=== PATIENT | male | born 1985 | race African-American/Black ===

== ENCOUNTER 2021-01-18 07:58 | Observation (INO) | payer OTHER, SELFPAY ==
[2021-01-18] VITALS (14 sets, daily range): BP systolic 110–144; BP diastolic 80–109; PULSE 74–112; RESP 16–23; TEMP 36.2–37.1; O2SAT 98–100
--- NOTE | 2021-01-18 | ECHO_ITS ---
Patient Info Name: Varun Rankin Age: 35 years : 1985 Gender: Male Ht: 75 in Wt: 240 lbs BSA: 2.42 m2 HR: 85 bpm BP: 144 / 82 mmHg Heart Rhythm: Sinus Rhythm Technical Quality: Fair Exam Date: 01/18/2021 2:44 PM Exam Location: [facility] Card Pulmonary Patient Status: Inpatient Admit Date: 01/18/2021 Staff Ordering Physician: Sanchez Dolan MD Operations Trainer: Darlene Caceres RDCS Attending Provider: Sanchez Dolan MD Referring Physician: Magdaleno POTRER; Exam Type: CA echo doppler color flow Study Info Indications R55 - Syncope and collapse Complete two-dimensional, color flow and Doppler transthoracic echocardiogram is performed. Summary 1. Complete two-dimensional, color flow and Doppler transthoracic echocardiogram is performed. 2. Left ventricular systolic function is normal, estimated at 65-70%. 3. There is no increased left ventricular wall thickness. 4. There is no mitral valve stenosis. 5. There is trace tricuspid valve regurgitation. 6. Unable to estimate PA systolic pressure due to poor spectral resolution of tricuspid regurgitant jet velocity. 7. There is no aortic valve stenosis. 8. There is no pericardial effusion. Left Ventricle Left ventricular chamber dimension is normal. Left ventricular systolic function is normal, estimated at 65-70%. There is no increased left ventricular wall thickness. The left ventricular diastolic function is normal. Right Ventricle Right ventricular chamber dimension is normal. Right ventricular systolic function is normal. Left Atria Left atrial chamber dimension is normal. Right Atria Right atrial chamber dimension is normal. Aortic Valve The aortic valve is trileaflet. There is no aortic valve stenosis. There is no aortic valve regurgitation. Pulmonic Valve The pulmonic valve is not well visualized. There is trace pulmonic regurgitation. Mitral Valve The mitral valve has normal leaflets. There is no mitral valve stenosis. Tricuspid Valve The tricuspid valve leaflets are normal. There is trace tricuspid valve regurgitation. Unable to estimate PA systolic pressure due to poor spectral resolution of tricuspid regurgitant jet velocity. Pericardium/Pleural The pericardium appears normal. There is no pericardial effusion. Aorta The aortic root size at the sinus of Valsalva is normal. Left Ventricular Outflow Tract Name Value Normal LVOT 2D LVOT Diameter 2.1 cm LVOT Doppler LVOT Peak Gradient 5 mmHg LVOT Mean Gradient 3 mmHg LVOT VTI 25 cm LVOT VTI/AV VTI Ratio 1.1 LVOT Stroke Volume 86 ml LVOT CO 7.1 l/min LVOT CI 2.9 l/min/m2 Pulmonic Valve Name Value Normal RVOT Doppler
--- NOTE | ~2021-01-18 | CT_ITS ---
EXAMINATION: CT BRAIN W/O DATE: 01/18/2021 09:09 INDICATION: Syncope TECHNIQUE: Computed tomography (CT) of the head was performed without intravenous contrast. The dose- length product was 605.33 mGy-cm. Automated exposure control and iterative reconstruction technique w ere employed. COMPARISON: No prior studies for comparison. FINDINGS: Normal brain parenchymal volume for age. Normal rosen-white differentiation. No acute intrac ranial hemorrhage, infarction, mass or mass effect. No ventriculomegaly or midline shift. Midline sagittal images demonstrate a normal corpus callosum, c raniovertebral junction and sella turcica. Basilar cisterns are patent. Paranasal sinuses and mastoids are pneumatized. No depressed skull fractures. IMPRESSION: 1. No acute intracranial abnormality. Reviewed, dictated and finalized at location B.
--- NOTE | 2021-01-18 08:03 | ECG_ITS ---
Measurements Intervals [place] Rate: 86 P: 29 MI: 173 QRS: 39 QRSD: 104 T: 35 QT: 412 QTc: 493 Interpretive Statements SINUS RHYTHM NONSPECIFIC ST ELEVATION- ANTERIOR LEADS BORDERLINE T WAVE ABNORMALITY- INFERIOR LEADS BASELINE ARTIFACT- I, II, III, AVR, AVF, V1, V3-V6 BORDERLINE ECG Electronically Signed On 01-18-2021 8:16:22 CDT by Isrrael Villa D.O.
[2021-01-18 08:18] LABS: Basophils Percent Auto 0.4 % (0.2-1.2); Eosinophils Absolute Auto 0.4 K/mm3 (0-0.3); Eosinophils Percent Auto 4.3 % (0-4.4); Hematocrit 40.9 % (42.0-52.0); Hemoglobin 14.2 g/dL (14.0-18.0); Immature Granulocyte Absolute 0.02 K/mm3 (0.00-0.031); Immature Granulocyte Percent A 0.2 % (0-0.5); Immature Platelet Fraction Pct 6.9 % (0.9-11.2); Lymphocytes Percent Auto 57.5 % (18.3-44.2); Mean Corpuscular HGB Conc 34.7 g/dl (32-36); Mean Corpuscular Hemoglobin 33.6 pg (26-34); Mean Corpuscular Volume 96.9 fl (80-100); Mean Platelet Volume 10.7 fl (7.4-10.4); Monocytes Absolute Auto 0.5 K/mm3 (0.1-0.6); Monocytes Percent Auto 6.1 % (2.6-8.5); Neutrophils Absolute Auto 2.6 K/mm3 (1.3-6.7); Neutrophils Percent Auto 31.5 % (45.5-73.1); Platelet Count Result 112 k/mm3 (150-375); Red Blood Count 4.22 M/mm3 (4.6-6.20); Red Cell Distribution Width 14.2 % (11.5-14.5); White Blood Count 8.4 K/mm3 (4.5-10.0)
[2021-01-18 08:40] LABS: Anion Gap 9 mmol/L (8-16); Blood Urea Nitrogen 8 mg/dL (9-20); Carbon Dioxide 27 mmol/L (22-30); Chloride 104 mmol/L (98-107); Estimated CRCL calculation 120 ml/min; Estimated Glomerular Filt Rate > 60; Glucose 94 mg/dL (75-110); Potassium 3.4 mmol/L (3.4-5.0); Sodium 140 mmol/L (137-145)
--- NOTE | 2021-01-18 10:51 | ED.SYNCOPE ---
HPI - Syncope General Chief Complaint: Syncope Stated Complaint: syncopal Time Seen by Provider: 01/18/21 08:27 Mode of arrival: ambulatory Limitations: no limitations History of Present Illness HPI narrative: 35-year-old with no major medical problems was brought in by with complaints of having 2 syncopal episodes. Patient states that he woke up this morning to use the restroom passed out and few minutes later he had another syncopal episode. As per the he was staring at the ceiling not knowing what is going around him. Upon arrival to the ER patient denied any chest pain, shortness of breath or palpitations. Seem to be confused but he was able to answer all the questions. Related Data Allergies Allergy/AdvReac Type Severity Reaction Status Date / Time No Known Allergies Allergy Unknown Verified 01/18/21 08:14 Review of Systems Review of Systems: All systems reviewed & are unremarkable except as noted in HPI and below Constitutional: Constitutional: Reports no additional constitutional complaints Eyes: Eyes: Reports no additional eye complaints ENT: Reports system reviewed and no additional complaints, except as documented Cardiovascular: Cardiovascular: Reports no additional cardiovascular complaints Respiratory: Respiratory: Reports no additional respiratory complaints PMFSH Social History Social History Gender identity (if verbalized by the patient): Male Exam Narrative: Exam Narrative: GENERAL: Well-appearing, well-nourished, and in no acute distress. HEAD: Normocephalic, atraumatic. EYES: PERRLA and EOMI. NECK: Supple. CHEST: Clear to auscultation. No respiratory distress. HEART: Regular rate and rhythm. No murmur heard. Normal peripheral pulses. ABDOMEN: Soft, nontender, nondistended, normal active bowel sounds. EXTREMITIES: Normal range of motion. No edema. SKIN: Warm, dry, no rash. NEURO: No focal deficits. Alert and oriented x3. PSYCH: Normal mood and affect. Const: General: no acute distress Course Course Emergency Course: Patient remained in normal sinus rhythm while he was here in the ER I discussed labs and CT findings with the patient as patient had 2 syncopal episodes on one single day prefer to admit him in the hospital for observation. I discussed with the hospitalist agreed to admit the patient. Vital Signs Vital signs: Vital Signs Temperature 37.1 C 01/18/21 08:03 Pulse Rate 86 01/18/21 08:03 Respiratory Rate 16 01/18/21 08:03 Blood Pressure 131/89 01/18/21 08:03 Pulse Oximetry 100 01/18/21 08:03 Temperature 37.1 C 01/18/21 08:03 Pulse Rate 83 01/18/21 10:37 Respiratory Rate 17 01/18/21 10:37 Blood Pressure 144/109 H 01/18/21 10:37 Pulse Oximetry 100 01/18/21 10:37 MDM - Syncope Lab Data Result diagrams: 01/18/21 08:09 01/18/21 08:09 Labs: Lab Results 01/18/21 01/18/21 Range/Units 08:09 08:09 WBC 8.4 (4.5-10.0) K/mm3 RBC 4.22 L (4.6-6.20) M/mm3 Hgb 14.2 (14.0-18.0) g/dL Hct 40.9 L (42.0-52.0) % MCV 96.9 (80-100) fl MCH 33.6 (26-34) pg MCHC 34.7 (32-36) g/dl RDW 14.2 (11.5-14.5) % Plt Count 112 L (150-375) k/mm3 MPV 10.7 H (7.4-10.4) fl Immature Gran % (Auto) 0.2 (0-0.5) % Neut % (Auto) 31.5 L (45.5-73.1) % Lymph % (Auto) 57.5 H (18.3-44.2) % [place] % (Auto) 6.1 (2.6-8.5) % Eos % (Auto) 4.3 (0-4.4) % Baso % (Auto) 0.4 (0.2-1.2) % Lymph # (Auto) 4.80 H (0.9-3.2) K/mm3 [place] # (Auto) 0.5 (0.1-0.6) K/mm3 Eos # (Auto) 0.4 H (0-0.3) K/mm3 Baso # (Auto) 0.0 (0.0-0.1) K/mm3 Abs Immat Gran (auto) 0.02 (0.00-0.031) K/mm3 Absolute Neuts (auto) 2.6 (1.3-6.7) K/mm3 Absolute Nucleated RBC 0.0 (0.0-0.012) K/mm3 Nucleated RBC % 0.0 (0.0-0.2) % % Immature Plt Fraction 6.9 (0.9-11.2) % Sodium 140 (137-145) mmol/L Potassium 3.4 (3.4-5.0) mmol/L C
--- NOTE | 2021-01-18 12:25 | PM.IMHP ---
H&P: HPI History of Present Illness Date/Time: 01/18/21 12:25 Chief Complaint: Syncope Narrative: This is a 35-year-old male with no significant past medical history he he smokes 7 cigarettes a day roughly, patient presented to the emergency room after he passed out while while he was standing urinating at home fell forward and witnessed. Patient states that last night he took few shots. He has been his usual state of health prior to these. He denies any chills rigors fevers dizziness lightheadedness any auras no incontinent of stool or urine no chills no fevers no rigors no nausea no vomiting no diarrhea no constipation no chest pain no palpitations no leg swelling. Preliminary workup was pretty much unremarkable. Will place patient on observation. Review of Systems Review of Systems: Narrative: The patient presented to the emergency room after he was witnessed by his while he was standing using the bathroom he passed out patient had been taken shots last night Constitutional: Comments: No fevers no rigors no chills Eyes: Comments: No vision changes ENT: Comments: No nasal congestion no earache no sore throat Cardiovascular: Comments: No chest pain no PND no orthopnea no palpitations no dizziness no lightheadedness Respiratory: Comments: No shortness of breath no cough no sputum production Gastrointestinal: Comments: No nausea no vomiting no diarrhea Musculoskeletal: Comments: No muscle aches or pains or joint pain Integumentary/Breasts: Comments: No rashes Neurologic: Comments: No sensorimotor deficit Endocrine: Comments: No polydipsia polyphagia or polyuria no heat or cold intolerance Hematologic/Lymphatic: Comments: No lymphadenopathies [facility] Family History Family History (Updated 01/18/21 @ 12:30 by Jazzy Malik RN) Father Cerebrovascular accident Sibling Cerebrovascular accident Mother Diabetes mellitus Social History Social History Smoking packs per day: 0.5 Smoking cigarettes per day: 10.0 Years smoked: 15 Smoking pack-years: 7.50 Smoking status: Current every day smoker Tobacco type: cigarettes Gender identity (if verbalized by the patient): Male Meds Home Medications and Allergies Home Medications Medication Instructions Recorded Confirmed Type No Home Medications 01/18/21 01/18/21 History Allergies Allergy/AdvReac Type Severity Reaction Status Date / Time No Known Allergies Allergy Unknown Verified 01/18/21 08:14 Vital Signs Vital Signs - 24 hr 01/18/21 08:03 01/18/21 08:13 01/18/21 08:24 Temperature 98.7 F Pulse Rate 86 82 94 Respiratory Rate 16 Blood Pressure 131/89 135/84 Pulse Oximetry 100 01/18/21 08:25 01/18/21 09:57 01/18/21 10:37 Temperature Pulse Rate 112 H 85 83 Respiratory Rate 19 17 Blood Pressure 110/80 142/97 H 144/109 H Pulse Oximetry 100 100 01/18/21 11:52 01/18/21 11:55 Temperature Pulse Rate 87 86 Respiratory Rate 18 23 H Blood Pressure 137/95 H 137/95 H Pulse Oximetry 100 99 Exam Narrative: Exam Narrative: Patient is laying in gurney well-appearing Const: General: comfortable, no acute distress, well developed, alert and awake Nutritional Appearance: average body habitus Orientation/consciousness: patient oriented x3 HENMT: Head: normal to inspection, normocephalic and atraumatic Ears: hearing grossly normal bilaterally Face and sinus: normal facial exam Eyes: General: appearance normal, both eyes and all related structures Pupils: Equal, round and reactive pupils present EOM: EOMs intact bilaterally Neck: Neck: full ROM, no lymphadenopathy and no JVD Thyroid: thyroid normal Lymphatic: no lymphadenopathy noted Resp: Effort & Inspection: normal respiratory effort and able to speak in complete sentences Auscultation: clear to auscultation bilaterally Cardio: Jugular venous distension: no JVD Rate: regular rate Rhythm:
--- NOTE | 2021-01-18 12:33 | ADMGEN ---
This patient, Varun Rankin, was admitted to 2 Medical Room 260-. Patient/family oriented to hospital policies and general routines including ID bracelet, bed and alarms, visiting hours, pain management, procedures, bathroom and other care routines, personal items, smoking policy, room service/diet, and visiting hours. Information on how to activate the Rapid Response Team has been discussed. Patient/Family are encouraged to report perceived risks to care and to ask questions if they do not understand what they are told or what they should do. Patient in bed resting comfortably at this time. Will continue to monitor patient.
[2021-01-18] MEDS: SODIUM CHLORIDE 0.9% IV 1,000 ML 75 ML IV CONT (12:52)
[2021-01-18] MEDS: THIAMINE HCL INJ 100 MG, FOLIC ACID INJ 1 MG, MULTIVITAMINS-12 INJ VIAL 1 5 ML, MULTIVI... IV CONT (15:12)
[2021-01-18] MEDS: ACETAMINOPHEN 325 MG TABLET 650 MG PO (19:57)
[2021-01-19] VITALS: BP 143/91; PULSE 71; RESP 16; TEMP 36.2; O2SAT 100
[2021-01-19 04:00] VITALS: BP 150/92; PULSE 69; RESP 16; TEMP 36.9; O2SAT 100
[2021-01-19 05:35] LABS: Basophils Percent Auto 0.3 % (0.2-1.2); Eosinophils Absolute Auto 0.3 K/mm3 (0-0.3); Eosinophils Percent Auto 3.5 % (0-4.4); Hematocrit 38.1 % (42.0-52.0); Immature Granulocyte Absolute 0.02 K/mm3 (0.00-0.031); Immature Granulocyte Percent A 0.3 % (0-0.5); Immature Platelet Fraction Pct 8.1 % (0.9-11.2); Lymphocytes Absolute Auto 4.19 K/mm3 (0.9-3.2); Lymphocytes Percent Auto 53.8 % (18.3-44.2); Mean Corpuscular HGB Conc 34.1 g/dl (32-36); Mean Corpuscular Hemoglobin 33.3 pg (26-34); Mean Corpuscular Volume 97.7 fl (80-100); Monocytes Absolute Auto 0.5 K/mm3 (0.1-0.6); Monocytes Percent Auto 6.7 % (2.6-8.5); Neutrophils Absolute Auto 2.8 K/mm3 (1.3-6.7); Neutrophils Percent Auto 35.4 % (45.5-73.1); Platelet Count Result 95 k/mm3 (150-375); Red Cell Distribution Width 14.2 % (11.5-14.5); White Blood Count 7.8 K/mm3 (4.5-10.0)
[2021-01-19 05:51] LABS: Anion Gap 6 mmol/L (8-16); Blood Urea Nitrogen 9 mg/dL (9-20); Calcium 8.5 mg/dL (8.4-10.2); Carbon Dioxide 27 mmol/L (22-30); Chloride 105 mmol/L (98-107); Estimated CRCL calculation 152 ml/min; Estimated Glomerular Filt Rate > 60; Glucose 89 mg/dL (75-110); Sodium 138 mmol/L (137-145)
[2021-01-19 05:57] LABS: Potassium 3.5 mmol/L (3.4-5.0)
[2021-01-19 07:32] VITALS: O2SAT 99
[2021-01-19 08:00] VITALS: BP 135/87; PULSE 68; PULSE 73; RESP 18; TEMP 36.1; O2SAT 100
--- NOTE | 2021-01-19 10:20 | PM.DS ---
DS: Admitting Diagnosis Admitting Diagnosis Admitting Diagnosis: (1) Syncope: (2) ETOH abuse: (3) Tobacco abuse: DS: Discharge Diagnosis Discharge Diagnosis (1) Syncope: Qualifiers: Syncope type: unspecified Qualified Code(s): R55 - Syncope and collapse Code(s): R55 - Syncope and collapse Status: Acute Assessment and Plan: ECHOCARDIOGRAM REVIEWED UNREMARKABLE FINDINGS CT HEAD REVIEWED UNREMARKABLE NO FINDINGS ON TELEMETRY SUSPECTED ALCOHOL INTOXICATION PATIENT HAD BEEN DRINKING THE NIGHT BEFORE (2) ETOH abuse: Code(s): F10.10 - Alcohol abuse, uncomplicated Status: Acute Assessment and Plan: PATIENT HAD BEEN BINGE DRINKING THE DAY BEFORE (3) Tobacco abuse: Code(s): Z72.0 - Tobacco use Status: Acute Assessment and Plan: PATIENT WAS ENCOURAGED TO STOP TOBACCO USE DS: Summary Hospital Course Reason for hospitalization: SYNCOPE Hospital Course: THIS IS A 35-YEAR-OLD MALE WITH KNOWN SIGNIFICANT PAST MEDICAL HISTORY HE IS A CURRENT EVERYDAY SMOKER PATIENT CAME TO THE EMERGENCY ROOM AFTER HE WAS WITNESSED TO TO HAVE A SYNCOPAL EPISODE AT HOME WHILE USING THE TOILET STANDING UPON FURTHER QUESTIONING PATIENT STATED THAT HE HAD BEEN DRINKING THE NIGHT BEFORE PRELIMINARY WORKUP WAS UNREMARKABLE. AN ECHOCARDIOGRAM DID NOT SHOW ANY ACUTE ABNORMALITIES WELL CT OF THE HEAD NO EVENTS WERE RECORDED ON TELEMETRY PATIENT ALSO EXPRESSED CONCERNS ABOUT POSSIBLY BEING A DIABETIC BUT HIS SUGARS REMAIN WITHIN NORMAL LIMITS. PATIENT HAS BEEN DISCHARGED HOME WILL FOLLOW-UP IN THE OUTPATIENT SETTING. CONSULTS OBTAINED: NO CONSULT PROCEDURES: NO PROCEDURES Status at Discharge Cognitive/behavioral status at discharge: AAOX3 Functional status at discharge: independent ambulation Overall status at discharge: patient is back to baseline Time Spent with Patient Time attestation: Total time spent providing and/or coordinating discharge services: Exam Narrative: Exam Narrative: PATIENT IS LAYING IN BED Const: General: comfortable, no acute distress, well developed, alert and awake Nutritional Appearance: average body habitus Orientation/consciousness: patient oriented x3 HENMT: Head: normal to inspection, normocephalic and atraumatic Ears: hearing grossly normal bilaterally Face and sinus: normal facial exam Eyes: General: appearance normal, both eyes and all related structures Pupils: Equal, round and reactive pupils present EOM: EOMs intact bilaterally Neck: Neck: full ROM, no lymphadenopathy and no JVD Thyroid: thyroid normal Lymphatic: no lymphadenopathy noted Resp: Effort & Inspection: normal respiratory effort and able to speak in complete sentences Auscultation: clear to auscultation bilaterally Cardio: Jugular venous distension: no JVD Rate: regular rate Rhythm: regular rhythm Heart sounds: S1 normal heart sound present and S2 normal heart sound present GI: GI Palp: Yes Soft to palpation and Yes No hepatosplenomegaly present : General: Yes deferred Skin: Rashes: no rashes Wounds: no wounds Neuro: General: patient oriented x3 and CN's II-XI intact bilaterally Cranial nerves: Yes CN's II-XII intact bilaterally and Yes Equal, round and reactive pupils present Cognition (Neuro): normal cognition Speech: normal speech Gait exam (Neuro): Normal gait present Motor exam (neuro): 5/5 motor strength present throughout Extrem: General: normal to inspection, full ROM, no joint enlargement and no pedal edema DS: Data Data Completed and Pending Completed studies during hospitalization: EXAMINATION: CT BRAIN W/O DATE: 01/18/2021 09:09 INDICATION: Syncope TECHNIQUE: Computed tomography (CT) of the head was performed without intravenous contrast. The dose-length product was 605.33 mGy-cm. Automated exposure control and iterative reconstruction technique were employed. COMPARISON: No prior studies for comparison. FINDINGS:
[2021-01-19 12:04] LABS: Glucose Point of Care 113 (65-105)
== END 2021-01-19 12:38 | disposition home or self-care (01) ==
LOC: ANHED 10:54 → ANH2MED 11:22
PROVIDERS: Admitting Provider Internal Medicine; Emergency Provider Family Medicine; Visit Provider Internal Medicine
DX: R55 Syncope and collapse (principal); F10.10 Alcohol abuse, uncomplicated; F17.210 Nicotine dependence, cigarettes, uncomplicated
CPT/HCPCS: 36415; 70450; 80048; 82948; 85025; 85055; 93005; 93306; 96361; 96365; 96366; 99285; A9270; G0378; J3411; J3475; J7030

== ENCOUNTER 2021-06-11 22:23 | Emergency (ER) | payer OTHER, SELFPAY ==
[2021-06-11 22:27] VITALS: BP 133/88; PULSE 99; RESP 18; TEMP 36.3; O2SAT 98
[2021-06-12 00:26] VITALS: BP 124/91; PULSE 94; RESP 18; TEMP 36.6; O2SAT 99
--- NOTE | 2021-06-12 00:34 | ED.GENADULT ---
HPI - General Adult General Chief complaint: Extremity Problem,Nontraumatic Stated complaint: I think my blood clot is coming back Time Seen by Provider: 06/12/21 00:21 History of Present Illness HPI narrative: Patient 36-year-old gentleman who presents the emergency department with chief complaint of right leg pain. The patient reports he has history of a DVT and pulmonary embolism last 2 years ago. The patient reports he is currently on a DOAC and reports that he has been compliant with his medications patient reports over the last week he has had pain in his right calf area reports that it is worse with movement and improved with rest. Patient denies chest pain denies shortness of breath. Related Data Home Medications Medication Instructions Recorded Confirmed rivaroxaban [Xarelto] mg 06/11/21 Allergies Allergy/AdvReac Type Severity Reaction Status Date / Time No Known Allergies Allergy Unknown Verified 06/11/21 22:30 Review of Systems Review of Systems: A 10 system review of systems was completed on the patient and is negative except for what is stated in the HPI. Nursing and ancillary documentation was reviewed. [facility] Family History Family History Father Cerebrovascular accident Sibling Cerebrovascular accident Mother Diabetes mellitus Social History Social History Smoking packs per day: 0.5 Smoking cigarettes per day: 10.0 Years smoked: 15 Smoking pack-years: 7.50 Smoking status: Current every day smoker Tobacco type: cigarettes Alcohol intake: current Drinks per week: 2 Substance use: never Gender identity (if verbalized by the patient): Male Sexual Orientation (if Verbalized by the Patient): Straight or Heterosexual Spiritual care concerns: No Exam Narrative: GENERAL: Well-appearing, well-nourished, and in no acute distress. HEAD: Normocephalic, atraumatic. EYES: PERRLA and EOMI. ENT: Nares clear, no rhinorrhea or epistaxis. Mucous membranes moist. NECK: Supple. CHEST: Clear to auscultation. No respiratory distress. HEART: Regular rate and rhythm. No murmur heard. Normal peripheral pulses. ABDOMEN: Soft, nontender, nondistended, normal active bowel sounds. EXTREMITIES: Normal range of motion. No edema. Tenderness to palpation in the right calf SKIN: Warm, dry, no rash. NEURO: No focal deficits. Alert and oriented x3. PSYCH: Normal mood and affect. Course Vital Signs Vital signs: Vital Signs Temperature 36.3 C L 06/11/21 22:27 Pulse Rate 99 06/11/21 22:27 Respiratory Rate 18 06/11/21 22:27 Blood Pressure 133/88 06/11/21 22:27 Pulse Oximetry 98 06/11/21 22:27 Temperature 36.6 C 06/12/21 00:26 Pulse Rate 94 06/12/21 00:26 Respiratory Rate 18 06/12/21 00:26 Blood Pressure 124/91 H 06/12/21 00:26 Pulse Oximetry 99 06/12/21 00:26 Medical Decision Making Vital Signs Vital Signs: Vital Signs Temperature 36.3 C L 06/11/21 22:27 Pulse Rate 99 06/11/21 22:27 Respiratory Rate 18 06/11/21 22:27 Blood Pressure 133/88 06/11/21 22:27 Pulse Oximetry 98 06/11/21 22:27 Temperature 36.6 C 06/12/21 00:26 Pulse Rate 94 06/12/21 00:26 Respiratory Rate 18 06/12/21 00:26 Blood Pressure 124/91 H 06/12/21 00:26 Pulse Oximetry 99 06/12/21 00:26 Discharge Plan Discharge Clinical Impression: Acute pain of right lower extremity Patient Disposition: Home, Self-Care Condition: Stable Instructions: Antibiotic Form Additional Instructions: Please return to radiolog between 630 and 645 for a ultrasound appointment with your right leg that is scheduled for 7 AM. This will be used to determine if there is a blood clot in your leg Prescriptions: No Action Xarelto 20 mg tablet RF: 0 Follow-up/Referrals: Salvatore,DAJUAN Mclean [Primary Care Provider] -
[2021-06-12 01:39] LABS: Basophils Percent Auto 0.6 % (0.2-1.2); Eosinophils Absolute Auto 0.3 K/mm3 (0-0.3); Eosinophils Percent Auto 4.6 % (0-4.4); Hematocrit 44.2 % (42.0-52.0); Hemoglobin 14.9 g/dL (14.0-18.0); Immature Granulocyte Absolute 0.01 K/mm3 (0.00-0.031); Immature Granulocyte Percent A 0.1 % (0-0.5); Immature Platelet Fraction Pct 7.1 % (0.9-11.2); Lymphocytes Absolute Auto 3.93 K/mm3 (0.9-3.2); Lymphocytes Percent Auto 58.8 % (18.3-44.2); Mean Corpuscular HGB Conc 33.7 g/dl (32-36); Mean Corpuscular Hemoglobin 34.3 pg (26-34); Mean Corpuscular Volume 101.6 fl (80-100); Mean Platelet Volume 10.9 fl (7.4-10.4); Monocytes Absolute Auto 0.5 K/mm3 (0.1-0.6); Monocytes Percent Auto 8.1 % (2.6-8.5); Neutrophils Absolute Auto 1.9 K/mm3 (1.3-6.7); Neutrophils Percent Auto 27.8 % (45.5-73.1); Platelet Count Result 138 k/mm3 (150-375); Red Blood Count 4.35 M/mm3 (4.6-6.20); Red Cell Distribution Width 15.5 % (11.5-14.5); White Blood Count 6.7 K/mm3 (4.5-10.0)
[2021-06-12 01:47] LABS: Alanine Aminotransferase 91 U/L (4-50); Albumin Level 4.1 g/dL (3.5-5.1); Alkaline Phosphatase 74 U/L (38-126); Anion Gap 12 mmol/L (8-16); Aspartate Amino Transferase 135 U/L (17-59); Bilirubin,Total 0.3 mg/dL (0.2-1.3); Blood Urea Nitrogen 6 mg/dL (9-20); Calcium 8.6 mg/dL (8.4-10.2); Carbon Dioxide 28 mmol/L (22-30); Chloride 110 mmol/L (98-107); Estimated CRCL calculation 133 ml/min; Estimated Glomerular Filt Rate > 60; Glucose 97 mg/dL (65-110); Potassium 3.6 mmol/L (3.4-5.0); Sodium 150 mmol/L (137-145)
[2021-06-12 01:49] LABS: INR 0.9; Partial Thromboplastin Time 26.2 SECONDS (22.3-36.8); Prothrombin Time 11.6 Seconds (11.1-14.7)
[2021-06-12 01:52] LABS: D Dimer 0.36 ug/mL (<0.48)
[2021-06-12 02:32] VITALS: BP 106/75; PULSE 80; RESP 16; O2SAT 99
== END 2021-06-12 02:47 | disposition home or self-care (01) ==
PROVIDERS: Emergency Provider Emergency Medicine; PCP Nurse Practitioner Family
DX: M79.604 Pain in right leg (principal); F17.210 Nicotine dependence, cigarettes, uncomplicated; Z86.718 Personal history of other venous thrombosis and embolism; Z86.711 Personal history of pulmonary embolism; Z79.01 Long term (current) use of anticoagulants
CPT/HCPCS: 36415; 80053; 85025; 85055; 85380; 85610; 85730; 99283

== ENCOUNTER 2021-06-12 07:05 | Outpatient (CLI) | payer OTHER, SELFPAY ==
--- NOTE | ~2021-06-12 | US_ITS ---
EXAMINATION: US venous doppler LE RT DATE: 06/12/2021 07:36 INDICATION: Right lower limb pain TECHNIQUE: Vasquez scale images without and with compression and Doppler images of the right lower extre mity veins were obtained. COMPARISON: 05/20/2019 FINDINGS: The right common femoral vein, profunda femoral vein, femoral vein, popliteal vein, peronea l trunk, posterior tibial veins, and greater saphenous vein are patent. IMPRESSION: 1. Patent right lower extremity veins. No evidence of deep venous thrombosis. Reviewed, dictated and finalized at location A.
== END 2021-06-12 07:06 | disposition home or self-care (01) ==
PROVIDERS: PCP Nurse Practitioner Family; Visit Provider Emergency Medicine
DX: M79.661 Pain in right lower leg (principal)
CPT/HCPCS: 93971

== ENCOUNTER 2022-06-13 14:45 | Emergency (ER) | payer OTHER, SELFPAY ==
--- NOTE | ~2022-06-13 | CT_ITS ---
EXAMINATION: CT abdomen pelvis w con DATE: 06/13/2022 18:49 INDICATION: abd pain TECHNIQUE: Computed tomography (CT) of the abdomen and pelvis was performed with 100 mL Omnipaque-350 intravenous contrast. Automated exposure control and iterative reconstruction technique were employe d. The dose-length product was 716.15 mGy-cm. COMPARISON: 02/02/2019. FINDINGS: Lower thorax: Bibasilar dependent atelectasis/scar Liver: Diffuse fatty infiltration. Liver enlargement. Biliary/Gallbladder: Gallbladder is normal. No bile duct dilation. Pancreas: No mass or duct dilation. Spleen: Normal. Adrenals:No mass. Kidneys: Left midpole cyst. Right midpole hypodensity, too small to characterize. No suspicious mass. No hydronephrosis or obstructing calculus. GI tract: No small or large bowel dilation. Normal appendix. Mesentery/Peritoneum: No ascites, mass, or free air. Retroperitoneum: No mass. Pelvis: Marked bladder wall thickening, even given the lack of distention, with mild surrounding infl ammatory change. Soft Tissues: Soft tissues and body wall unremarkable. Bones: No acute osseous finding. IMPRESSION: CT findings may reflect cystitis in the appropriate clinical context. Hepatomegaly and steatosis. Oth erwise, no acute finding in the abdomen or pelvis. Reviewed, dictated and finalized at location K. IMPRESSION: CT findings may reflect cystitis in the appropriate clinical context. Hepatomeg daryn and steatosis. Otherwise, no acute finding in the abdomen or pelvis.
[2022-06-13 14:47] VITALS: BP 157/110; PULSE 92; RESP 18; TEMP 36.9; O2SAT 100
--- NOTE | 2022-06-13 14:54 | ECG_ITS ---
Measurements Intervals [place] Rate: 78 P: 33 NE: 140 QRS: 29 QRSD: 89 T: 61 QT: 423 QTc: 482 Interpretive Statements SINUS RHYTHM NORMAL ECG COMPARED TO ECG 01/18/2021 08:07:06 NO SIGNIFICANT CHANGES Electronically Signed On 06-13-2022 16:56:08 CDT by Isrrael Villa D.O.
[2022-06-13 15:13] LABS: Basophils Percent Auto 0.4 % (0.2-1.2); Eosinophils Absolute Auto 0.1 K/mm3 (0-0.3); Eosinophils Percent Auto 0.7 % (0-4.4); Hematocrit 45.6 % (42.0-52.0); Hemoglobin 15.2 g/dL (14.0-18.0); Immature Granulocyte Absolute 0.03 K/mm3 (0.00-0.031); Immature Granulocyte Percent A 0.4 % (0-0.5); Immature Platelet Fraction Pct 5.2 % (0.9-11.2); Lymphocytes Absolute Auto 3.28 K/mm3 (0.9-3.2); Lymphocytes Percent Auto 38.4 % (18.3-44.2); Mean Corpuscular HGB Conc 33.3 g/dl (32-36); Mean Corpuscular Hemoglobin 32.1 pg (26-34); Mean Corpuscular Volume 96.4 fl (80-100); Mean Platelet Volume 10.5 fl (7.4-10.4); Monocytes Absolute Auto 0.9 K/mm3 (0.1-0.6); Monocytes Percent Auto 10.3 % (2.6-8.5); Neutrophils Absolute Auto 4.3 K/mm3 (1.3-6.7); Neutrophils Percent Auto 49.8 % (45.5-73.1); Platelet Count Result 116 k/mm3 (150-375); Red Blood Count 4.73 M/mm3 (4.6-6.20); Red Cell Distribution Width 16.3 % (11.5-14.5); White Blood Count 8.5 K/mm3 (4.5-10.0)
[2022-06-13 15:23] LABS: Alanine Aminotransferase 52 U/L (6-50); Albumin Level 4.2 g/dL (3.5-5.1); Alkaline Phosphatase 96 U/L (38-126); Anion Gap 13 mmol/L (8-16); Aspartate Amino Transferase 83 U/L (17-59); Bilirubin,Total 1.3 mg/dL (0.2-1.3); Blood Urea Nitrogen 5 mg/dL (9-20); Calcium 9.2 mg/dL (8.4-10.2); Carbon Dioxide 25 mmol/L (22-30); Chloride 101 mmol/L (98-107); Estimated CRCL calculation 149 ml/min; Estimated Glomerular Filt Rate > 60; Glucose 101 mg/dL (65-110); Lipase 54 U/L (23-300); Potassium 3.4 mmol/L (3.4-5.0); Sodium 139 mmol/L (137-145)
--- NOTE | 2022-06-13 18:15 | ED.NAVMDI ---
HPI - Nausea/Vomiting/Diarrhea General Chief complaint: Nausea/Vomiting/Diarrhea Stated complaint: N/V, chills Time Seen by Provider: 06/13/22 18:12 Source: RN notes reviewed History of Present Illness HPI Narrative: Patient presents emergency room from home for nausea vomiting and abdominal pain. Patient states that he is been having recurrent episodes of nausea vomiting over the past 6 months 60 has been associate with abdominal pain across the upper abdomen. He states he does have intermittent diarrhea as well states he has had subjective fevers but has not measured fever he denies any chest pain shortness of breath or any other symptoms states he did take Tylenol earlier today for the symptoms states he is on Plavix daily for history of previous CVA Related Data Home Medications Medication Instructions Recorded Confirmed rivaroxaban 20 mg tablet (Xarelto) mg 06/11/21 Allergies Allergy/AdvReac Type Severity Reaction Status Date / Time No Known Allergies Allergy Unknown Verified 06/13/22 18:23 Review of Systems Review of Systems: Gen.: Denies fevers or chills ENT: Denies congestion Respiratory: Denies shortness of breath or cough CV: Denies chest pain or palpitations GI: See HPI Musculoskeletal: Denies back pain or muscle pain Neuro: Denies numbness, tingling, weakness or focal weakness Skin: Denies rash Except as documented, all other systems reviewed and negative [facility] Past Medical History Medical History (Updated 06/13/22 @ 21:39 by Lex Rivas DO) CVA (cerebral vascular accident) Family History Family History Father Cerebrovascular accident Sibling Cerebrovascular accident Mother Diabetes mellitus Social History Social History Smoking packs per day: 0.5 Smoking cigarettes per day: 10.0 Years smoked: 15 Smoking pack-years: 7.50 Smoking status: Current every day smoker Tobacco type: cigarettes Alcohol intake: current Drinks per week: 2 Substance use: never Gender identity (if verbalized by the patient): Male Sexual Orientation (if Verbalized by the Patient): Straight or Heterosexual Spiritual care concerns: No Exam Narrative: APPEARANCE: No acute distress, nontoxic, resting in bed HEENT: Normocephalic, atraumatic, OMM RESPIRATORY: No respiratory distress, clear to auscultation bilaterally with no rhonchi wheezing or rales CARDIOVASCULAR: RRR s murmur ABDOMINAL: Soft nondistended tender palpation epigastric, right upper quadrant left upper quadrant no tenderness right lower quadrant left lower quadrant no rebound or guarding MUSCULOSKELETAl: Moves all extremities. No clubbing, cyanosis or edema. NEURO: Awake and alert. Following commands, speech normal, no focal deficits SKIN:: Warm, dry. Normal Color PSYCHIATRIC: Normal affect/mood Course Course Emergency Course: Patient is now request to evaluate his tooth he states his right lower molar tooth is carious and has been painful for the past several days states he has not been evaluated by dentist on a valuation the right lower molar tooth #32 is carious and tender palpation mild erythema with no fluctuance of the gum we will start on Pen-Vee K and have patient follow-up with his dentist Reviewed the patient's UA patient has 21-3 WBCs but there is negative nitrite and leukocyte Estrace doubt urinary tract infection at this time we will send urine for culture Discussed with the patient his blood pressure he states that he is not currently on any blood pressure medicine. Discussed with patient need to follow-up with his PCP for his blood pressure we also discussed the patient's protein in his urine need follow-up with his PCP to repeat a UA All discussed Dr. Celaya on-call for Dr. Chase patient's PCP we discussed protein in the urine we discussed the patient's blood pressure readings at this time he r
[2022-06-13] MEDS: MORPHINE SULFATE (*CRX) 4 MG/ML INJ IV PUSH (18:30)
[2022-06-13] MEDS: ONDANSETRON INJ 4 MG/2 ML VIAL IV PUSH (18:30)
[2022-06-13] MEDS: SODIUM CHLORIDE 0.9% IV 1,000 ML 999 ML IV CONT ×2 (18:30→20:23)
[2022-06-13] MEDS: FAMOTIDINE 20 MG/2 ML VIAL IV PUSH (18:31)
[2022-06-13 19:56] LABS: Appearance Urine Slightly Cloudy (Clear); Bilirubin Urine 2+ (Negative); Glucose Urine UA Negative (Negative); Ketones Urine 4+ mg/dL (Negative); Leukocyte Esterase Ur Negative LEU/UL (Negative); Nitrate Urine Negative (Negative); Protein Urine 3+ mg/dL (Negative); Specific Grav Ur 1.015 (1.001-1.035)
[2022-06-13 20:11] LABS: Add Urine Microscopic? YES; Blood Urine Trace-Intact (Negative); Mucus Urine Heavy /lpf; RBC Urine 21-50 /hpf (0-2); WBC Urine 21-30 /hpf
[2022-06-13 20:12] LABS: Color Urine Brown (Yellow)
[2022-06-13] MEDS: RIVAROXABAN 20 MG TABLET PO (21:21)
[2022-06-13 21:22] VITALS: BP 185/109; PULSE 78; RESP 21; O2SAT 99
[2022-06-13] MEDS: PENICILLIN V POTASSIUM 250 MG TABLET 500 MG PO (21:47)
== END 2022-06-13 21:38 | disposition home or self-care (01) ==
PROVIDERS: Emergency Provider Emergency Medicine; PCP Nurse Practitioner Family
DX: R11.2 Nausea with vomiting, unspecified (principal); R10.12 Left upper quadrant pain; R10.11 Right upper quadrant pain; K04.7 Periapical abscess without sinus; Z86.73 Personal history of transient ischemic attack (TIA), and cerebral infarction without residual deficits; F17.210 Nicotine dependence, cigarettes, uncomplicated; Z79.02 Long term (current) use of antithrombotics/antiplatelets
CPT/HCPCS: 36415; 74177; 80053; 81001; 83690; 85025; 85055; 87086; 87088; 93005; 96361; 96374; 96375; 99284; A9270; J2270; J2405; J7030; Q9967

== ENCOUNTER 2022-08-14 09:20 | Emergency (ER) | payer OTHER, SELFPAY ==
[2022-08-14] VITALS (9 sets, daily range): BP systolic 129–151; BP diastolic 81–102; PULSE 64–81; RESP 14–22; TEMP 36.4; O2SAT 92–100
--- NOTE | ~2022-08-14 | CT_ITS ---
EXAMINATION: CT abdomen pelvis wo con DATE: 08/14/2022 10:43 INDICATION: Nephrolithiasis presenting with hematuria. TECHNIQUE: Computed tomography (CT) of the abdomen and pelvis was performed without intravenous contr ast. Automated exposure control and iterative reconstruction technique were employed. The dose-length product was 272.76 mGy-cm. COMPARISON: 06/13/2022 FINDINGS: Unchanged linear and curvilinear bands of discoid atelectasis/scarring most prominent in the left low er lobe and to lesser degree at the lingula and right lower lobe. Calcified nodule in the right lower lobe consistent with old granulomatous disease. Heart size is normal. No pericardial or pleural effu nimo. Prominent diffuse hepatic steatosis. Gallbladder, spleen, pancreas and bilateral adrenal glands are normal. Kidneys and ureters are normal with no urolithiasis, hydroureteronephrosis or perinephri c/ureteral stranding. There is diffuse mild fatty infiltration of the wall of the colon. Small bowel and appendix are normal. Bladder appears normal but is partially decompressed which somewhat limits e valuation. No free intraperitoneal gas or fluid. No pathologically enlarged abdominal or pelvic lymph adenopathy. Minimal likely physiologic anterior wedging at T12 and L1. IMPRESSION: 1. No urolithiasis or other acute intra-abdominal/pelvic process. 2. Diffuse hepatic steatosis. Reviewed, dictated and finalized at location A. EY TECHNICIAN
--- NOTE | ~2022-08-14 | CT_ITS ---
EXAMINATION: CT brain wo con DATE: 08/14/2022 14:25 INDICATION: dizzy . TECHNIQUE: Computed tomography (CT) of the head was performed without intravenous contrast. The mA wa s adjusted according to patient size. Iterative reconstruction technique was employed. The dose-lengt h product was 605.33 mGy-cm. COMPARISON: 01/18/2021. FINDINGS: No acute intracranial hemorrhage or extra-axial fluid collection. No hydrocephalus, mass, or herniation. No acute ischemic infarct. Unremarkable dural venous sinus attenuation. No acute osseous abnormality. The aerated spaces are clear. IMPRESSION: No acute intracranial process. Reviewed, dictated and finalized at location K. IT REFERENCE CLERK
[2022-08-14 09:44] LABS: Basophils Percent Auto 0.3 % (0.2-1.2); Eosinophils Percent Auto 0.4 % (0-4.4); Hematocrit 41.9 % (42.0-52.0); Hemoglobin 14.1 g/dL (14.0-18.0); Immature Granulocyte Absolute 0.01 K/mm3 (0.00-0.031); Immature Granulocyte Percent A 0.1 % (0-0.5); Immature Platelet Fraction Pct 5.6 % (0.9-11.2); Lymphocytes Absolute Auto 6.21 K/mm3 (0.9-3.2); Lymphocytes Percent Auto 69.9 % (18.3-44.2); Mean Corpuscular HGB Conc 33.7 g/dl (32-36); Mean Corpuscular Hemoglobin 33.8 pg (26-34); Mean Corpuscular Volume 100.5 fl (80-100); Mean Platelet Volume 10.8 fl (7.4-10.4); Monocytes Absolute Auto 0.5 K/mm3 (0.1-0.6); Monocytes Percent Auto 6.1 % (2.6-8.5); Neutrophils Absolute Auto 2.1 K/mm3 (1.3-6.7); Neutrophils Percent Auto 23.2 % (45.5-73.1); Platelet Count Result 114 k/mm3 (150-375); Red Blood Count 4.17 M/mm3 (4.6-6.20); Red Cell Distribution Width 15.4 % (11.5-14.5); White Blood Count 8.9 K/mm3 (4.5-10.0)
[2022-08-14 09:53] LABS: Mucus Urine Rare /lpf; RBC Urine >75 /hpf (0-2); Squamous Epithelial Cell Urine Few /hpf (Few)
[2022-08-14 09:55] LABS: Appearance Urine Turbid (Clear); Color Urine Brown (Yellow); Glucose Urine UA Negative (Negative); Protein Urine 1+ mg/dL (Negative)
[2022-08-14 09:56] LABS: Bilirubin Urine 2+ (Negative); Blood Urine 4+ (Negative); Ketones Urine 3+ mg/dL (Negative); Nitrate Urine Positive (Negative)
[2022-08-14 09:57] LABS: Add Urine Microscopic? YES; Leukocyte Esterase Ur 1+ LEU/UL (Negative)
[2022-08-14 10:12] LABS: Anion Gap 12 mmol/L (8-16); Blood Urea Nitrogen 7 mg/dL (9-20); Calcium 8.3 mg/dL (8.4-10.2); Carbon Dioxide 24 mmol/L (22-30); Chloride 108 mmol/L (98-107); Estimated CRCL calculation 118 ml/min; Estimated Glomerular Filt Rate > 60; Glucose 81 mg/dL (65-110); Potassium 3.8 mmol/L (3.4-5.0); Sodium 144 mmol/L (137-145)
[2022-08-14 10:14] LABS: Platelet Estimate Decreased (Adequate)
[2022-08-14 10:15] LABS: Schistocytes None Seen (NORMAL); Target Cells 1+ (NORMAL)
--- NOTE | 2022-08-14 11:20 | ED.GENADULT ---
HPI - General Adult General Chief complaint: Urogenital-Male Stated complaint: blood in urine since this AM Time Seen by Provider: 08/14/22 09:41 History of Present Illness HPI narrative: 37-year-old male with past medical history of PE, CVA, kidney stones presents to our department for evaluation of hematuria x24 hours. Patient thinks he may have a recurrence of his kidney stones. He has not experienced any pain with the hematuria. Patient takes Xarelto daily. No fever. Related Data Home Medications Medication Instructions Recorded Confirmed rivaroxaban 20 mg tablet (Xarelto) mg 06/11/21 Allergies Allergy/AdvReac Type Severity Reaction Status Date / Time No Known Allergies Allergy Unknown Verified 08/14/22 09:21 Review of Systems Review of Systems: CONSTITUTIONAL: Denies fever, chills, or sweats. EYES: Denies visual changes, redness, or discharge. ENT: Denies rhinorrhea, congestion, sore throat, or otalgia. CARDIOVASCULAR: Denies chest pain, palpitations, or edema. RESPIRATORY: Denies cough or dyspnea. GASTROINTESTINAL: Denies abdominal pain, nausea, vomiting, or diarrhea. GENITOURINARY: Denies dysuria or hematuria. SKIN: Denies rash or itching. MUSCULOSKELETAL: Denies back pain, joint pain, or myalgia. NEUROLOGIC: Denies headache, numbness, or weakness. PSYCHIATRIC: Denies anxiety or depression. [facility] Past Medical History Medical History (Updated 08/14/22 @ 11:18 by Naif Cerna DO) CVA (cerebral vascular accident) Family History Family History Father Cerebrovascular accident Sibling Cerebrovascular accident Mother Diabetes mellitus Social History Social History Smoking packs per day: 0.5 Smoking cigarettes per day: 10.0 Years smoked: 15 Smoking pack-years: 7.50 Smoking status: Current every day smoker Tobacco type: cigarettes Alcohol intake: current Drinks per week: 2 Substance use: never Gender identity (if verbalized by the patient): Male Sexual Orientation (if Verbalized by the Patient): Straight or Heterosexual Spiritual care concerns: No Exam Narrative: GENERAL: Well-appearing, well-nourished, and in no acute distress. HEAD: Normocephalic, atraumatic. EYES: PERRLA and EOMI. ENT: Nares clear, no rhinorrhea or epistaxis. Mucous membranes moist. NECK: Supple. CHEST: Clear to auscultation. No respiratory distress. HEART: Regular rate and rhythm. No murmur heard. Normal peripheral pulses. ABDOMEN: Soft, nontender, nondistended, normal active bowel sounds. EXTREMITIES: Normal range of motion. No edema. SKIN: Warm, dry, no rash. NEURO: No focal deficits. Alert and oriented x3. PSYCH: Normal mood and affect. Course Vital Signs Vital signs: Vital Signs Temperature 97.5 F L 08/14/22 09:22 Pulse Rate 81 08/14/22 09:22 Respiratory Rate 16 08/14/22 09:22 Blood Pressure 151/97 H 08/14/22 09:22 Pulse Oximetry 100 08/14/22 09:22 Oxygen Delivery Room Air 08/14/22 09:22 Temperature 97.5 F L 08/14/22 09:22 Pulse Rate 81 08/14/22 09:22 Respiratory Rate 16 08/14/22 09:22 Blood Pressure 151/97 H 08/14/22 09:22 Pulse Oximetry 100 08/14/22 09:22 Oxygen Delivery Room Air 08/14/22 09:22 Medical Decision Making MDM Narrative Medical decision making narrative: I have discussed all lab and imaging results with patient and family. We do not do taxi kidney stone on CT scan. UA is indicative of urinary tract infection patient does take Xarelto daily. We have discussed the importance of close monitoring and he will have prompt follow-up with his PCP to discuss risk versus benefits of continuing versus deseeding his Xarelto. Hemoglobin is greater than 14 at this time and there is no active bleeding noted. He is stable for discharge home. Vital Signs Vital Signs: Vital Signs Temperature 97.5 F L
--- NOTE | 2022-08-14 11:50 | PC.NURSE ---
Patient got up to get dressed for discharge, walked into the bathroom, felt dizzy and lightheaded. Lise, ED word processor technician took a wheelchair into patient's room and assited patient into the chair. Unable to get chair through bathroom door, patient assisted by 2 ED staff members and assisted onto his stretcher. Extrusion Press Supervisor made Dr. Cerna aware of the situation, per Dr. Cerna patient is still okay for discharge. Extrusion Press Supervisor then spoke with MAURIZIO Amaral ED charge nurse and informed her what happened. Decision to give patient some food and drink and reassess patient prior to discharge. Patient given turkey sandwhich, chips, water, and orange juice at this time. Will reevaluate patient after he eats.
[2022-08-14] MEDS: SODIUM CHLORIDE 0.9% IV 1,000 ML 999 ML IV CONT (12:08)
--- NOTE | 2022-08-14 12:24 | PC.NURSE ---
Patient attempted to sit up on the side of the bed after eating his sandwich and chips. Patient sat up, stood up, and became dizzy and lightheaded. Patient unable to walk and sat back down on stretcher. Dr. Cerna made aware of situation and Dr. Cerna to go see patient.
--- NOTE | 2022-08-14 13:57 | ECG_ITS ---
Measurements Intervals [place] Rate: 70 P: 49 GA: 185 QRS: 49 QRSD: 92 T: 34 QT: 443 QTc: 479 Interpretive Statements SINUS RHYTHM NONSPECIFIC ST ELEVATION IN ANT/INF LEADS BORDERLINE ECG COMPARED TO ECG 06/13/2022 15:01:21 NO SIGNIFICANT CHANGES Electronically Signed On 08-14-2022 17:06:00 MATERIALS SCIENTIST by Isrrael Villa D.O.
[2022-08-14 14:20] LABS: Troponin I < 0.012 ng/mL (0.000-0.034)
== END 2022-08-14 15:46 | disposition home or self-care (01) ==
PROVIDERS: Physician Assistant; Emergency Provider Emergency Medicine; PCP Nurse Practitioner Family
DX: N30.00 Acute cystitis without hematuria (principal); Z86.73 Personal history of transient ischemic attack (TIA), and cerebral infarction without residual deficits; Z86.711 Personal history of pulmonary embolism; F17.210 Nicotine dependence, cigarettes, uncomplicated; Z20.822 Contact with and (suspected) exposure to COVID-19; R94.31 Abnormal electrocardiogram [ECG] [EKG]
CPT/HCPCS: 36415; 70450; 74176; 80048; 81001; 84484; 85025; 85055; 87086; 93005; 96360; 99283; J7030

== ENCOUNTER 2022-09-16 00:23 | Day surgery (SDC) | payer OTHER, SELFPAY ==
[2022-09-13 09:20] VITALS: BMI 30.4
--- NOTE | 2022-09-16 11:14 | P.HP_ITS ---
History of Present Illness History of Present Illness Consent: Risks, benefits, and alternatives have been discussed and questions answered. Patient agrees to proceed with procedure. Chief complaint: nausea/vomiting Narrative: Varun Rankin is a 37 year old male who Has had issues with recurrent nausea vomiting for the past year. Most episodes are preceded by dizziness. he has lost he believes about 10 lb. He denies abdominal pain. He had gone to the emergency room where he was started on famotidine which seems to be helping somewhat. Review of Systems Review of Systems: All systems reviewed & are unremarkable except as noted in HPI and below PMFSH Past Medical History Medical History CVA (cerebral vascular accident) DVT (deep venous thrombosis) Nausea & vomiting Pulmonary embolism Family History Family History Father Cerebrovascular accident Sibling Cerebrovascular accident Mother Diabetes mellitus Social History Social History Smoking packs per day: 0.5 Smoking cigarettes per day: 10.0 Years smoked: 15 Smoking pack-years: 7.50 Smoking status: Current every day smoker Tobacco type: cigarettes Alcohol intake: current Drinks per week: 21 Alcohol use details: [facility] Substance use: never Substance use type: does not use Living arrangements: with family Gender identity (if verbalized by the patient): Male Sexual Orientation (if Verbalized by the Patient): Straight or Heterosexual Spiritual care concerns: No Meds Home Medications and Allergies Home Medications Medication Instructions Recorded Confirmed Type rivaroxaban 20 mg tablet (Xarelto) 20 mg PO QPM 06/11/21 09/13/22 History famotidine 20 mg tablet (Pepcid AC) 20 mg PO DAILY #14 tabs 06/13/22 09/13/22 Rx ondansetron 4 mg disintegrating 4 mg PO Q6H PRN nausea and 08/30/22 09/13/22 Rx tablet vomiting #20 tabs Allergies Allergy/AdvReac Type Severity Reaction Status Date / Time No Known Allergies Allergy Unknown Verified 09/16/22 11:44 Exam Const: General: alert Orientation/consciousness: patient oriented x3 Resp: Auscultation: clear to auscultation bilaterally Cardio: Rhythm: regular rhythm GI: GI Palp: Yes Soft to palpation and No Tenderness to palpation present (GI) Neuro: General: patient oriented x3 Assessment and Plan Assessment and plan (1) Nausea & vomiting: Code(s): R11.2 - Nausea with vomiting, unspecified Status: Acute Assessment and Plan: EGD with possible biopsy or dilatation or cautery.
[2022-09-16 11:45] VITALS: BP 167/106; PULSE 85; RESP 18; TEMP 37.1; O2SAT 100; BMI 28.8
[2022-09-16] MEDS: LACTATED RINGERS 1,000 ML 150 ML IV CONT (11:53)
--- NOTE | 2022-09-16 12:09 | P.PNAN_ITS ---
Anes - Initial Pre Proc Eval Procedure: Operation Date: 09/16/22 13:30 Proposed Procedures p Esophagogastroduodenoscopy EGD - Kin Cronin MD Date/Time: 09/16/22 12:09 Surgeon: Kin Cronin MD Pre Op Diagnosis: nausea/vomiting Patient Data Age: 37 Gender: M Height: 1.91 m Weight: 104.7 kg Last Vital Signs Temp 37.1 C 09/16/22 11:45 Pulse 85 09/16/22 11:45 Resp 18 09/16/22 11:45 BP 167/106 H 09/16/22 11:45 Pulse Ox 100 09/16/22 11:45 O2 Del Method Room Air 09/16/22 11:45 Allergies Allergy/AdvReac Type Severity Reaction Status Date / Time No Known Allergies Allergy Unknown Verified 09/16/22 11:44 Home Medications Medication Instructions Recorded Confirmed Type rivaroxaban 20 mg tablet (Xarelto) 20 mg PO QPM 06/11/21 09/13/22 History famotidine 20 mg tablet (Pepcid AC) 20 mg PO DAILY #14 tabs 06/13/22 09/13/22 Rx ondansetron 4 mg disintegrating 4 mg PO Q6H PRN nausea and 08/30/22 09/13/22 Rx tablet vomiting #20 tabs Patient hx anesthesia problems: none Family hx anesthesia problems: none Results Review: All pre-operative results and documents have been reviewed as part of the pre- operative evaluation. [facility] Past Medical History Medical History CVA (cerebral vascular accident) DVT (deep venous thrombosis) Nausea & vomiting Pulmonary embolism Family History Family History Father Cerebrovascular accident Sibling Cerebrovascular accident Mother Diabetes mellitus Social History Social History Smoking packs per day: 0.5 Smoking cigarettes per day: 10.0 Years smoked: 15 Smoking pack-years: 7.50 Smoking status: Current every day smoker Tobacco type: cigarettes Alcohol intake: current Drinks per week: 21 Alcohol use details: [facility] Substance use: never Substance use type: does not use Living arrangements: with family Gender identity (if verbalized by the patient): Male Sexual Orientation (if Verbalized by the Patient): Straight or Heterosexual Spiritual care concerns: No Anes - Eval Final PreProcedure Day of Procedure 09/16/22 12:09 Patient weight: overweight Heart: regular rate and rhythm Lungs: decreased breath sounds Airway: Mallampati scale class II Neurological: alert and oriented Last oral intake: >/= 8 hours ASA classification: III Emergent: no Anesthetic plan: proceed Anesthesia type and monitoring: general GIVS and standard monitoring Results Review: All pre-operative results and documents have been reviewed as part of the pre- operative evaluation. Informed Consent: The patient's anesthetic plan and its attendant risks and benefits were discussed with the patient/family/POA. Questions were solicited and answers provided to the satisfaction of the patient/family/POA.
[2022-09-16 12:41] VITALS: BP 158/111; PULSE 85; RESP 21; O2SAT 100
[2022-09-16 12:51] VITALS: BP 158/118; PULSE 79; RESP 16; O2SAT 100
[2022-09-16 13:01] VITALS: BP 158/116; PULSE 88; RESP 17; O2SAT 100
== END 2022-09-16 13:15 | disposition home or self-care (01) ==
PROVIDERS: PCP Nurse Practitioner Family; Visit Provider Internal Medicine Gastroenterology
PROC: 0DJ08ZZ Inspection of Upper Intestinal Tract, Via Natural or Artificial Opening Endoscopic (ICD-10-PCS; CPT 43235; principal; 2022-09-16 13:30)
DX: K29.70 Gastritis, unspecified, without bleeding (principal); Z86.73 Personal history of transient ischemic attack (TIA), and cerebral infarction without residual deficits; Z86.718 Personal history of other venous thrombosis and embolism; Z86.711 Personal history of pulmonary embolism; F17.210 Nicotine dependence, cigarettes, uncomplicated; Z79.01 Long term (current) use of anticoagulants
CPT/HCPCS: 43239; 87081; 88305; J2704; J7120

== ENCOUNTER 2022-10-13 08:19 | Emergency (ER) | payer OTHER, SELFPAY ==
--- NOTE | 2022-10-13 08:33 | ECG_ITS ---
Measurements Intervals [place] Rate: 79 P: 14 RI: 178 QRS: 15 QRSD: 89 T: 35 QT: 422 QTc: 484 Interpretive Statements SINUS RHYTHM NONSPECIFIC ST ELEVATION IN ANT/INF LEADS BASELINE ARTIFACT- AVR, AVF BORDERLINE ECG COMPARED TO ECG 08/14/2022 14:38:56 NO SIGNIFICANT CHANGES Electronically Signed On 10-13-2022 9:27:52 MANAGER CHILD by Isrrael Villa D.O.
[2022-10-13 08:39] VITALS: BP 173/90; PULSE 81; RESP 16; TEMP 37.6; O2SAT 100
[2022-10-13 08:47] LABS: Add Urine Microscopic? YES; Appearance Urine Slightly Cloudy (Clear); Bilirubin Urine 1+ (Negative); Blood Urine 3+ (Negative); Glucose Urine UA Negative (Negative); Ketones Urine 2+ mg/dL (Negative); Leukocyte Esterase Ur 1+ LEU/UL (Negative); Nitrate Urine Negative (Negative); Protein Urine 1+ mg/dL (Negative); Specific Grav Ur 1.015 (1.001-1.035); pH Urine 8.5 (5.0-9.0)
[2022-10-13 08:55] LABS: Bacteria Urine Trace /hpf; RBC Urine >75 /hpf (0-2); WBC Urine >75 /hpf
[2022-10-13 08:57] LABS: Color Urine Yellow (Yellow)
[2022-10-13 09:26] LABS: Basophils Percent Auto 0.4 % (0.2-1.2); Eosinophils Absolute Auto 0.1 K/mm3 (0-0.3); Eosinophils Percent Auto 1.4 % (0-4.4); Hemoglobin 14.4 g/dL (14.0-18.0); Immature Granulocyte Absolute 0.03 K/mm3 (0.00-0.031); Immature Granulocyte Percent A 0.3 % (0-0.5); Immature Platelet Fraction Pct 10.3 % (0.9-11.2); Lymphocytes Percent Auto 33.3 % (18.3-44.2); Mean Corpuscular HGB Conc 33.5 g/dl (32-36); Mean Corpuscular Hemoglobin 33.1 pg (26-34); Mean Corpuscular Volume 98.9 fl (80-100); Mean Platelet Volume 11.9 fl (7.4-10.4); Neutrophils Absolute Auto 5.4 K/mm3 (1.3-6.7); Neutrophils Percent Auto 54.6 % (45.5-73.1); Platelet Count Result 112 k/mm3 (150-375); Red Blood Count 4.35 M/mm3 (4.6-6.20); Red Cell Distribution Width 13.6 % (11.5-14.5); White Blood Count 9.9 K/mm3 (4.5-10.0)
[2022-10-13 09:37] LABS: Alanine Aminotransferase 49 U/L (6-50); Albumin Level 4.3 g/dL (3.5-5.1); Alkaline Phosphatase 79 U/L (38-126); Anion Gap 9 mmol/L (8-16); Aspartate Amino Transferase 59 U/L (17-59); Bilirubin,Total 0.9 mg/dL (0.2-1.3); Blood Urea Nitrogen 7 mg/dL (9-20); Carbon Dioxide 27 mmol/L (22-30); Chloride 99 mmol/L (98-107); Estimated CRCL calculation 118 ml/min; Estimated Glomerular Filt Rate > 60; Glucose 96 mg/dL (65-110); Potassium 4.2 mmol/L (3.4-5.0); Sodium 135 mmol/L (137-145)
[2022-10-13 10:00] LABS: Influenza A QL RT-PCR Negative (Negative); Influenza B QL RT-PCR Negative (Negative); RSV RNA, RT-PCR Negative (Negative); SARS-CoV-2 RNA PCR Negative
--- NOTE | 2022-10-13 10:19 | ED.MALEGU ---
HPI - Male Genitourinary General Chief complaint: Urogenital-Male Stated complaint: penile discharge, dizzy Time Seen by Provider: 10/13/22 08:28 History of Present Illness HPI Narrative: Patient states that the last few days he has been having some nausea, chills, and pain when he urinates, today noticed a lot of blood in his urine. He was on Xarelto for his PE diagnosed 3 years ago, however he did stop taking for the last week. He feels tired but otherwise denies any chest pain or difficulty breathing. Related Data Home Medications Medication Instructions Recorded Confirmed rivaroxaban 20 mg tablet (Xarelto) 20 mg PO QPM 06/11/21 09/13/22 Allergies Allergy/AdvReac Type Severity Reaction Status Date / Time No Known Allergies Allergy Unknown Verified 09/16/22 11:44 Review of Systems Review of Systems: CONST: Chills HEENT: No sore throat C/V: No chest pain RESP: No cough GI: Nausea : Dysuria and hematuria M/S: No leg swelling SKIN: No rash. NEURO: [No headache or focal numbness or weakness] PSYCH: [No depression] [facility] Past Medical History Medical History CVA (cerebral vascular accident) DVT (deep venous thrombosis) Nausea & vomiting Pulmonary embolism Family History Family History Father Cerebrovascular accident Sibling Cerebrovascular accident Mother Diabetes mellitus Social History Social History Smoking packs per day: 0.5 Smoking cigarettes per day: 10.0 Years smoked: 15 Smoking pack-years: 7.50 Smoking status: Current every day smoker Tobacco type: cigarettes Alcohol intake: current Drinks per week: 21 Alcohol use details: [facility] Substance use: never Substance use type: does not use Gender identity (if verbalized by the patient): Male Sexual Orientation (if Verbalized by the Patient): Straight or Heterosexual Spiritual care concerns: No Exam Narrative: EXAMINATION OF ORGAN SYSTEMS/BODY AREAS: Constitutional: Vital signs per nursing GENERAL:[No acute distress, non-toxic appearing.] HEAD: Normal with no signs of head trauma. EYES: EOMI, conjunctiva normal ENT: Hearing grossly intact LUNGS: Nonlabored breathing. HEART: [Regular rate and rhythm] ABD: [Soft], [nontender to palpation] EXT: Normal range of motion, no lower extremity edema SKIN: [No rashes or lesions.] NEURO: [Alert and oriented x 3. No gross focal sensory or strength deficits.] PSYCH: Normal affect Course Vital Signs Vital signs: Vital Signs Temperature 99.7 F H 10/13/22 08:39 Pulse Rate 81 10/13/22 08:39 Respiratory Rate 16 10/13/22 08:39 Blood Pressure 173/90 H 10/13/22 08:39 Pulse Oximetry 100 10/13/22 08:39 Temperature 99.7 F H 10/13/22 08:39 Pulse Rate 81 10/13/22 08:39 Respiratory Rate 16 10/13/22 08:39 Blood Pressure 173/90 H 10/13/22 08:39 Pulse Oximetry 100 10/13/22 08:39 MDM - Male Genitourinary MDM Narrative Medical decision making narrative: 37-year-old male presenting with hematuria and dysuria, vital signs are stable here, on exam he has no tenderness anywhere including no flank or abdominal tenderness, as he is on Xarelto I will obtain work-up to rule out anemia, check for UTI, he has no pain and there from the suspicious for stones, also obtain bladder scan to make sure he is not obstructed. Labs reviewed and there is no leukocytosis or anemia, he does have a large amount of RBCs and WBCs in his urine. He will be started on ceftriaxone here and given a course of antibiotics, I did review prior cultures and did not see any obvious resistances. Bladder scan here shows no urinary retention, therefore I do not feel he requires any sort of Rojas or bladder irrigation at this time. He is given strict return precautions and follow-up to urology as well as hemato
== END 2022-10-13 11:32 | disposition home or self-care (01) ==
PROVIDERS: Emergency Provider Emergency Medicine; PCP Nurse Practitioner Family
DX: N30.91 Cystitis, unspecified with hematuria (principal); Z20.822 Contact with and (suspected) exposure to COVID-19; Z86.711 Personal history of pulmonary embolism; Z86.73 Personal history of transient ischemic attack (TIA), and cerebral infarction without residual deficits; Z86.718 Personal history of other venous thrombosis and embolism; F17.210 Nicotine dependence, cigarettes, uncomplicated; Z79.01 Long term (current) use of anticoagulants; R94.31 Abnormal electrocardiogram [ECG] [EKG]
CPT/HCPCS: 36415; 80053; 81001; 85025; 85055; 87086; 87491; 87591; 87637; 93005; 96365; 99284; J0696

== ENCOUNTER 2023-02-24 08:03 | Outpatient (CLI) | payer OTHER, SELFPAY ==
--- NOTE | ~2023-02-24 | CT_ITS ---
EXAMINATION: CT abdomen pelvis wo/w con DATE: 02/24/2023 08:59 INDICATION: Gross hematuria TECHNIQUE: Computed tomography (CT) of the abdomen and pelvis was performed without intravenous contr ast. CT of the abdomen and pelvis was then performed with a total of 130 mL Omnipaque 350 intravenous contrast using a double-bolus technique for simultaneous opacification of the renal parenchyma and r enal collecting system. The dose-length product (DLP) was 2079.12 mGy-cm. Automated exposure control and iterative reconstruction technique were employed. COMPARISON: 08/14/2022 FINDINGS: There is chronic linear atelectasis versus scarring of the left lower lobe. The heart size is normal. The liver is diffusely low in attenuation when compared with the spleen, consistent with h epatic steatosis. The spleen, pancreas, gallbladder, and adrenal glands are normal. No suspicious dominique al or urothelial lesion identified. There is a 7 mm cyst of the left kidney. No stones are identified in the kidneys, ureters, or bladder. No hydronephrosis or hydroureter. There is deformity of multipl e calyces of the kidneys with some demonstrating a central cleft and others a teardrop shaped papilla ry cavity. No pathologically enlarged abdominal or pelvic lymph nodes are identified. No free intrape ritoneal gas or evidence of bowel obstruction. The appendix is normal. IMPRESSION: 1. CT findings suggestive of papillary necrosis. 2. Diffuse hepatic steatosis Reviewed, dictated and finalized at location B.
== END 2023-02-24 08:04 ==
LOC: MICIMG 08:04
PROVIDERS: PCP Nurse Practitioner Family; Visit Provider Urology
DX: R31.0 Gross hematuria (principal); K76.0 Fatty (change of) liver, not elsewhere classified
CPT/HCPCS: 74178; Q9967

== ENCOUNTER 2024-12-03 17:10 | Emergency (ER) | payer OTHER, SELFPAY ==
--- NOTE | 2024-12-03 17:14 | ED_ITS ---
HPI - Skin/Abscess/Foreign Bdy General Chief complaint: Extremity Problem,Nontraumatic Stated complaint: rt front gonzales discoloration Time Seen by Provider: 12/03/24 17:13 Source: patient Mode of arrival: ambulatory Limitations: no limitations History of Present Illness HPI narrative: Varun is a 39-year-old male patient presenting to the clinic today with complaints right anterior gonzales discoloration. He takes Xarelto history of DVT, PE, and CVA. States he fell over 4 months ago and still has a bruising discoloration to the right anterior gonzales. Denies any pain or tenderness. No swelling. No fevers, chills, body aches. Related Data Home Medications ?Medication ?Instructions ?Recorded ?Confirmed ?Last Taken ?Type rivaroxaban 20 mg tablet (Xarelto) 20 mg PO QPM 06/11/21 09/13/22 09/13/22 History Allergies Allergy/AdvReac Type Severity Reaction Status Date / Time No Known Allergies Allergy Unknown Verified 09/16/22 11:44 Review of Systems Review of Systems: Pertinent positives per HPI. Patient denies any fever, chills, rash, headache, visual changes, dizziness, cough, runny nose, sore throat, shortness of breath, chest pain, palpitations, nausea, vomiting, diarrhea, constipation, abdominal pain, or any urinary issues. [facility] Past Medical History Medical History Pulmonary embolism DVT (deep venous thrombosis) Nausea & vomiting CVA (cerebral vascular accident) Family History Family History Father Cerebrovascular accident Sibling Cerebrovascular accident Mother Diabetes mellitus Social History Social History Smoking packs per day: 0.5 Smoking cigarettes per day: 10.0 Years smoked: 15 Smoking pack-years: 7.50 Smoking status: Current every day smoker Tobacco type: cigarettes Alcohol intake: current Drinks per week: 21 Alcohol use details: SHOTS-[employer] - AT LEAST Substance use: never Substance use type: does not use Living arrangements: with family Gender identity (if verbalized by the patient): Male Sexual Orientation (if Verbalized by the Patient): Straight or Heterosexual Spiritual care concerns: No Comments At the time of my signature, I reviewed and agree with the nursing past medical, surgical, social, and family history. There is no relevant family history pertinent to the patient complaint. Exam Narrative: General: Well-developed, well nourished, in no apparent distress Head: Normocephalic, atraumatic. Cardio: Regular rate and rhythm, s1 and s2 normal, no murmur appreciated. Resp: Clear to auscultation bilaterally, no rhonchi, rales, wheezing or rubs. Musculoskeletal: No deformity, no swelling, bruising discoloration to the right lower anterior gonzales, non-tender to palpation, grossly normal range of motion, muscle strength strong and equal, peripheral pulse strong, no edema, no cyanosis, normal gait and station Course Course Emergency Course: Portions of this record may have been created with voice recognition software. Level of Care: Express Care Visit Vital Signs Vital signs: Vital signs reviewed MDM - Skin/Abscess/Foreign Bdy MDM Narrative Medical decision making narrative: At the time of visit patient is resting comfortably on the exam table. Patient appears to be nontoxic. Plan: I suspect patient had dramatic ecchymosis from his fall 4 months ago and this likely caused a hematoma/ecchymosis and that is resolving with some discoloration of his skin. Supportive measures were discussed with the patient and they voiced understanding discharge instructions and agrees to treatment plan. Return precautions reviewed Differential Diagnosis Differential diagnosis: Likely abscess of skin or subcutaneous tissue, cellulitis and other (Ecchymosis, on anticoagulation therapy, DVT) Discharge Plan Discharge Clinical Impression: Traumatic ecchymosis of right lower leg Patient Disposition: Home, Self-Care Condition: Stable Instructions: Antibiotic Form, Ecchymosis (ED) Additional Instructions: Likely had hematoma that is resolving causing the discoloration of the skin Moisturize skin using Cetaphil, Lubriderm, or Aquaphor lotion twice daily Follow-up as needed Patient Language: Malagasy Prescriptions: No Action ondansetron 4 mg tablet,disintegrating 4 mg PO Q6H PRN (Reason: nausea and vomiting) Qty: 20 0RF sulfamethoxazole-trimethoprim [Bactrim DS] 800-160 mg tablet 1 tablet PO Q12H Qty: 14 0RF ondansetron 4 mg tablet,disintegrating 4 mg PO Q8H PRN (Reason: nausea and vomiting) Qty: 10 0RF Xarelto 20 mg tablet 20 mg PO QPM famotidine [Pepcid AC] 20 mg tablet 20 mg PO DAILY Qty: 14 0RF Follow-up/Referrals: PHYSICIAN,WEATHERIZATION DIRECTOR [Non-Staff] - Time of Disposition: 17:29 Quality NIHSS Nursing Documentation ED NIHSS nursing documentation: reviewed/agree
[2024-12-03 17:24] VITALS: BP 101/78; PULSE 80; RESP 16; TEMP 36.3; O2SAT 99
== END 2024-12-03 17:32 | disposition home or self-care (01) ==
PROVIDERS: Emergency Provider Nurse Practitioner Family
DX: S80.11XA Contusion of right lower leg, initial encounter (principal); W19.XXXA Unspecified fall, initial encounter; Z86.718 Personal history of other venous thrombosis and embolism; Z86.711 Personal history of pulmonary embolism; Z86.73 Personal history of transient ischemic attack (TIA), and cerebral infarction without residual deficits; Z79.01 Long term (current) use of anticoagulants; F17.210 Nicotine dependence, cigarettes, uncomplicated
CPT/HCPCS: 99212; G0463

== ENCOUNTER 2025-08-06 13:01 | Emergency (ER) | payer OTHER, SELFPAY ==
[2025-08-06] VITALS (12 sets, daily range): BP systolic 108–132; BP diastolic 78–113; PULSE 81–113; RESP 12–21; TEMP 36.6–36.8; O2SAT 95–100
--- NOTE | ~2025-08-06 | XR_ITS ---
EXAMINATION: XR chest 2V DATE: 08/06/2025 14:54 INDICATION: Chest pain TECHNIQUE: Frontal and lateral views of the chest were obtained. COMPARISON: February 022018 FINDINGS: Minimal scarring and/or atelectatic changes in the left lung base. The lungs are otherwise clear and heart size normal. IMPRESSION: 1. Minimal scarring or atelectatic changes in the left lung base. Reviewed, dictated and finalized at location A. [facility]
--- NOTE | ~2025-08-06 | CT_ITS ---
CTA chest PE abdomen pel HISTORY:chest pain ab pain, hsx of PE . COMPARISON: None. 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 Post-processing on an independent workstation was performed to reconstruct MIP images for evaluation of the thoracic vasculature. FINDINGS: There is no pulmonary embolism, aortic dissection, thoracic aneurysm or pericardial fluid. The lung parenchyma is clear. No pleural effusion or pneumothorax is noted. There is no axillary, mediastinal or hilar adenopathy. Limited evaluation of the upper abdomen demonstrates no gross abnormalities. Review of bone windows demonstrates no osteoblastic or lytic lesions. IMPRESSION: There is no pulmonary embolism, aortic dissection, pericardial fluid or thoracic aneurysm. No acute lung findings. 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 No acute lung findings.
--- OUTSIDE RECORDS SUMMARY | 2025-08-06 14:03 | XMS_ITS | Clinical Summary ---
Author Organization [facility] Address [address] [place] [address] Care Team Providers Care Legislative Analyst Name Role Phone Court Phillips-REGISTERED DIET TECHNICIAN Primary Care Provider [phone] Source Comments [facility],non-owned Affiliates and Associated Physician Practices is amultiple site organization consisting of ambulatory clinics and hospital sitesin [place], [place] and [place]. This disclosure is being madepursuant to the Care Everywhere program and may not contain all information available regarding this patient. Last updated 18.[facility] [place] Allergies No known active allergies Medications * Be aware that medications may not be up to date on this document. Alwaysverify current medications with the patient. hydroCHLOROthi azide (Microzide) 12.5 MG capsule Take 1 (one) capsule by mouth once daily Active cyanocobalamin (Vitamin B-12) 1000 MCG tablet Take 1 (one) tablet by mouth once daily Active folic acid (Folvite) 1 MG tablet Take 1 (one) tablet by mouth once daily Active pantoprazole EC (Protonix) 20 MG tablet Take 1 (one) tablet by mouth once daily Active rivaroxaban (Xarelto) 20 MG tablet Take by mouth daily with food Active ondansetron (Zofran) 4 MG tablet Take 1 (one) tablet by mouth every 6 hours as needed for Nausea/Vomiting Active potassium chloride ER (K-TAB) 20 MEQ tablet Take 1 (one) tablet by mouth once daily Active meclizine (Antivert) 25 MG tablet Take 1 (one) tablet by mouth 2 times daily as needed for Dizziness 60 tablet 1 5 Active verapamil (Isoptin) 40 MG tablet Take 1 (one) tablet by mouth 2 times daily Active oxyCODONE, immediate release, (Roxicodone) 5 MG tabletIndicati ons:Abscess, perineum,Scrot al pain Take 1 (one) tablet to 2 (two) tablets by mouth every 6 hours as needed for Pain 12 tablet 5 Active acetaminophen (Tylenol) 325 MG tablet Take 2 (two) tablets by mouth every 4 hours as needed Maximum allowable Acetaminophen amount = 4 Grams (4000 mg) / 24 hours. 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 - on verapamil and xarelto (held due to I+D) HTN (hypertension) 07/20/2025 History of Pulmonary embolism 07/20/2025 Assessment & Plan (07/20/2025 9:49 AM CDT): - follows with neurologist - 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 - on verapamil and xarelto (held due to I+D) Assessment & Plan (07/20/2025 3:10 AM CDT): - follows with neurologist - 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 - on verapamil and xarelto (held due to I+D) CVA (cerebral vascular accident) 07/20/2025 Assessment & Plan (07/20/2025 9:49 AM CDT): - follows with neurologist - 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 - on verapamil and xarelto (held due to I+D) Assessment & Plan (07/20/2025 3:10 AM CDT): - follows with neurologist - 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 - on verapamil and xarelto (held due to I+D) Scrotal pain 07/19/2025 Assessment & Plan (07/20/2025 9:49 AM CDT): - differential includes infected follicle vs epididymitis less likely with no history of dysuria, burning with urination or discharge vs testicular torsion less likely - afebrile, HDS with leukocytosis now resolving 16.1 on admission to now 11.1 - vanc and zosyn started - discussed with urology (will transition to bactrim - urology consulted: - low concern for NTSI - I+D in ED with wound cultures sent (no growth at this time - continue holding xarelto until cleared by urology (they would like to hold through Monday given amount of bleeding) Assessment & Plan (07/20/2025 3:10 AM CDT): - differential includes infected follicle vs epididymitis less likely with no history of dysuria, burning with urination or discharge vs testicular torsion less likely - afebrile, HDS with leukocytosis now resolving 16.1 on admission to now 11.1 - vanc and zosyn started - urology consulted: - low concern for NTSI - I+D in ED with wound cultures sent - NPO in case he needs intervention in the AM Plan: - continue abx - fu wound cultures - fu Urology recs - continue holding xarelto until cleared by urology Abscess, perineum 07/19/2025 Assessment & Plan (07/20/2025 9:49 AM CDT): - differential includes infected follicle vs epididymitis less likely with no history of dysuria, burning with urination or discharge vs testicular torsion less likely - afebrile, HDS with leukocytosis now resolving 16.1 on admission to now 11.1 - vanc and zosyn started - discussed with urology (will transition to bactrim - urology consulted: - low concern for NTSI - I+D in ED with wound cultures sent (no growth at this time - continue holding xarelto until cleared by urology (they would like to hold through Monday given amount of bleeding) Assessment & Plan (07/20/2025 3:10 AM CDT): - differential includes infected follicle vs epididymitis less likely with no history of dysuria, burning with urination or discharge vs testicular torsion less likely - afebrile, HDS with leukocytosis now resolving 16.1 on admission to now 11.1 - vanc and zosyn started - urology consulted: - low concern for NTSI - I+D in ED with wound cultures sent - NPO in case he needs intervention in the AM Plan: - continue abx - fu wound cultures - fu Urology recs - continue holding xarelto until cleared by urology Cellulitis, perineum 07/19/2025 Assessment & Plan (07/20/2025 9:49 AM CDT): - differential includes infected follicle vs epididymitis less likely with no history of dysuria, burning with urination or discharge vs testicular torsion less likely - afebrile, HDS with leukocytosis now resolving 16.1 on admission to now 11.1 - vanc and zosyn started - discussed with urology (will transition to bactrim - urology consulted: - low concern for NTSI - I+D in ED with wound cultures sent (no growth at this time - continue holding xarelto until cleared by urology (they would like to hold through Monday given amount of bleeding) Assessment & Plan (07/20/2025 3:10 AM CDT): - differential includes infected follicle vs epididymitis less likely with no history of dysuria, burning with urination or discharge vs testicular torsion less likely - afebrile, HDS with leukocytosis now resolving 16.1 on admission to now 11.1 - vanc and zosyn started - urology consulted: - low concern for NTSI - I+D in ED with wound cultures sent - NPO in case he needs intervention in the AM Plan: - continue abx - fu wound cultures - fu Urology recs - continue holding xarelto until cleared by urology 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 [address] [place] [address] Radha Martinez RN Transitional Care 07/19/2025 6:02 PM CDT - 07/21/2025 10:50 AM CDT Hospital Encounter [facility]AY [facility] [address] [place] [address] Juanis Kelly MD Jain, Priya, MD Wheeler, Joseph R, MD Internal Medicine Discharge Disposition: Home or Self Care 07/19/2025 Travel from Last 3 Months Family History Medical History Relation Name Comments CVA Brother Seizures Brother Alcohol abuse Father CVA Father CAD (Coronary Artery Disease) Mother Cancer - Other Mother Depression Mother Anxiety Disorder Sister Asthma Sister Relation Name Status Comments Brother Father Mother Sister Social History Tobacco Use Types Packs/Day Years Used Date Smoking Tobacco: Every Day Cigarettes Smokeless Tobacco: Never Tobacco Cessation:Ready to Q uit: Not Asked; Counseling Given: Not Answered Alcohol Use Standard Drinks/Week Comments Yes 2 (1 standard drink = 0.6 oz pur e alcohol) 2-3 daily AUDIT-C Answer Date Recorded Q1: How often do you have a drink containing alc ohol? 2-4 times a month 07/19/2025 Q2: How many drinks containi ng alcohol do you have on a typical day when you are drinking? 3 or 4 07/19/2025 Q3: How often do you have si x or more drinks on one occasion? Never 07/19/2025 Overall Financial Resource Strain (CARDIA) Answe r Date Recorded How hard is it for you to pa y for the very basics like food, housing, medical care, and heating? Patient declined 07/19/2025 [facility] Occup[facility] ional [facility] - Occupational Stress Questionnaire Answer Date Recorded Do you feel stress - tense, restless, nervous, or anxious, or unable to sleep at night because your mind is troubled all the time - these days? Not at all 07/19/2025 Hunger Vital Sign Answer Date Recorded Within the past 12 months, y ou worried that your food would run out before you got the money to buy more. Patient declined Within the past 12 months, t he food you bought just didn't last and you didn't have money to get more. Patient declined PRAPARE - Transportation Answer Date Re corded In the past 12 months, has l ack of transportation kept you from medical appointments or from getting medications? No 06/26 In the past 12 months, has l ack of transportation kept you from meetings, work, or from getting things needed for daily living? No 07/19/2025 Housing Stability Vital Sign Answer Chay e Recorded In the last 12 months, was t here a time when you were not able to pay the mortgage or rent on time? No 07/19/2025 In the past 12 months, how m any times have you moved where you were living? 0 07/19/2025 At any time in the past 12 m [facility], were you homeless or living in a usp (including now)? No 07/19/2025 Sex and Gender Information Value Date Recorded Sex Assigned at Not on file Legal Sex Male 10:21 AM [employer] Gender Identity Not on file Sexual Orientation Not on file Last Filed Vital Signs Vital Sign Reading Time Taken Comments Blood Pressure 117/77 07/21/2025 7:44 AM CDT Pulse 94 07/21/2025 7:44 AM CDT Temperature 37 C (98.6 F) 07/21/2025 7:44 AM CDT Respiratory Rate 16 07/21/2025 7:44 AM CDT Oxygen Saturation 99% 07/21/2025 7:44 AM CDT Inhaled Oxygen Concentration 21% 07/16/2024 1 2:30 PM CDT Weight 109.8 kg (242 lb) 07/19/2025 6:04 PM CDT Height 190.5 cm (6' 3) 07/19/2025 6:04 PM CDT Body Mass Index 30.25 07/19/2025 6:04 PM CDT Plan of Treatment Upcoming Encounters Date Type Department Care Team (Late st Contact Info) Description 08/13/2025 12:45 PM [employer] Office Visit [facility] - Urology [address] [place] [id number] Isreal Hdz MD [address] [place] [phone] Health Maintenance Due Date Last Done Comments HIV SCREENING 01/30/2000 HEPATITIS C SCREENING 01/25/2003 DTAP/TDAP/TD VACCINES (1 - Tdap) 01/30/2004 HEPATITIS B VACCINE (1 of 3 - 19+ 3-dose series) 01/30/2004 PNEUMOCOCCAL VACCINE (1 of 2 - PCV) 01/30/2004 HPV VACCINE (1 - 3-dose SCDM series) 01/30/2012 DEPRESSION SCREENING 09/25/2024 COVID-19 VACCINE (3 - 2024-2 6 season) 2025 01/10/2021, 12/20/2020 INFLUENZA VACCINE (#1) 2025 LIPID TESTING 04/19/2028 04/19/2023, 08/02/2015 ZOSTER VACCINE (1 of 2) 2035 HIB VACCINE Aged Out No longer eligi ble based on patient's age to complete this topic MENINGOCOCCAL (Group B) VACCINE SHARED DECISION-MAKING Aged Out No longer eligible based on patient's age to complete this topic MENINGOCOCCAL GROUPS A/C/Y/W VACCINE Aged Out No longer eligible b ased on patient's age to complete this topic Procedures Procedure Name Priority Date/Time Associated Diagnosis Comments CBC W/O DIFFERENTIAL Routine 07/21/2025 1:49 AM CDT MAGNESIUM BLOOD Routine 07/21/2025 1:49 AM CDT RENAL FUNCTION PANEL Routine 07/21/2025 1:49 AM CDT URINALYSIS REFLEX MICROSCOPIC REFLEX CULTURE STAT 07/20/2025 7:57 AM CDT CULTURE URINE STAT 07/20/2025 7:57 AM CDT MAGNESIUM BLOOD Routine 07/20/2025 1:45 AM CDT RENAL FUNCTION PANEL Routine 07/20/2025 1:45 AM CDT CBC W/O DIFFERENTIAL Routine 07/20/2025 1:22 AM CDT VANCOMYCIN LEVEL RANDOM STAT 07/19/2025 9:55 PM CDT CULTURE WOUND+GRAM STAIN STAT 07/19/2025 8:48 PM CDT DIFFERENTIAL MANUAL STAT 07/19/2025 6 :25 PM CDT LACTIC ACID BLOOD STAT 07/19/2025 6:2 5 PM CDT COMPREHENSIVE METABOLIC PANEL STAT 07/19/2025 6:25 PM CDT CBC W AUTO DIFFERENTIAL STAT 07/19/2025 6:25 PM CDT from Last 3 Months Results * (ABNORMAL) CBC W/O DIFFERENTIAL (07/21/2025 1:49 AM CDT) Only the most recent of2 resultswithin the time period is included. WBC 11.0(H) 4.0 - 10.7 x10E9/L 07/21/2025 2:18 AM CDT [facility] RBC Count 4.07(L) 4.30 - 5.80 x10E12/L 07/21/2025 2:18 AM CDT [facility] Hemoglobin 12.2(L) 13.3 - 17.5 g/dL 07/21/2025 2:18 AM T [facility] Hematocrit 36.1(L) 38.7 - 51.1 % 07/21/2025 2:18 AM CDT [facility] MCV 88.7 80.0 - 98.0 fL 07/21/2025 2:18 AM [facility] MCH 30.0 26.7 - 33.6 pg 07/21/2025 2:18 AM [facility] MCHC 33.8 31.7 - 36.3 g/dL 07/21/2025 2:18 AM [facility] RDW-CV 13.1 11.3 - 14.8 % 07/21/2025 2:18 AM [facility] Platelet Count 205 150 - 420 x10E9/L 07/21/2025 2:18 AM [facility] MPV 10.0 7.8 - 11.4 fL 07/21/2025 2:18 AM [facility] Blood BLOOD SPECIMEN / Unknown Lab Venipuncture / Unknown 07/21/2025 1:49 AM CDT 07/21/2025 2:09 AM CDT us Natalya Dozier MD LAB - HEMATOLOGY ORDERABLES Fabby peralta Result [address] [address], [facility] [phone] * (ABNORMAL) RENAL FUNCTION PANEL (07/21/2025 1:49 AM CDT) Only the most recent of2 resultswithin the time period is included. BUN 12 7 - 26 mg/dL 07/21/2025 2:35 AM [facility] Creatinine 1.13 0.71 - 1.16 mg/dL 07/21/2025 2:35 AM [facility] Sodium 135(L) 136 - 145 mmol/L 07/21/2025 2:35 AM [facility] Potassium 3.6 3.5 - 4.5 mmol/L 07/21/2025 2:35 AM [facility] Chloride 103 98 - 107 mmol/L 07/21/2025 2:35 AM [facility] CO2 25 22 - 29 mmol/L 07/21/2025 2:35 AM [facility] Glucose 81 70 - 99 mg/dL 07/21/2025 2:35 AM [facility] Albumin 3.0(L) 3.4 - 5.0 g/dL 07/21/2025 2:35 AM CDT [facility] Calcium 9.1 8.4 - 10.2 mg/dL 07/21/2025 2:35 AM [facility] Phosphorus 3.2 2.8 - 5.1 mg/dL 07/21/2025 2:35 AM [facility] Anion Gap 7 6 - 16 07/21/2025 2:35 AM [facility] BUN/Creatinine Ratio 11 7 - 23 07/21/2025 2:35 AM [facility] Osmolality Calculated 279 275 - 295 mOsm/kg 07/21/2025 2:35 AM [facility] eGFR by CKD-EPI 84(L) >=90 mL/min/1.7 3 m2 07/21/2025 2:35 AM [facility] Comment:Estimated Glomerular Filtration Rate (eGFR) calculated using the CKD-EPI Creatinine Equation (2020), per the National Kidney Foundation and [place] [employer]ph[employer] recommendations. Blood BLOOD SPECIMEN / Unknown Lab Venipuncture / Unknown 07/21/2025 1:49 AM CDT 07/21/2025 2:09 AM CDT us Natalya Dozier MD LAB - CHEMISTRY ORDERABLES Final Result [address] [address], [facility] [phone] * MAGNESIUM BLOOD (07/21/2025 1:49 AM CDT) Only the most recent of2 resultswithin the time period is included. Magnesium 1.8 1.6 - 2.6 mg/dL 07/21/2025 2:35 AM CDT [facility] Blood BLOOD SPECIMEN / Unknown Lab Venipuncture / Unknown 07/21/2025 1:49 AM CDT 07/21/2025 2:09 AM CDT Natalya Dozier MD LAB - CHEMISTRY ORDERABLES Final Result [address] [place] [address], [facility] [phone] * (ABNORMAL) URINALYSIS REFLEX MICROSCOPIC REFLEX CULTURE (07/20/2025 7:57 AM [facility]) Color UA Yellow Yellow, Straw 07/20/2025 8:38 AM [facility] Clarity UA Clear Clear 07/20/2025 8:38 AM [facility] Glucose UA Normal Normal 07/20/2025 8:38 AM [facility] Bilirubin UA Negative Negative 07/20/2025 8:38 AM [facility] Ketone UA 1+(A) Negative 07/20/2025 8:38 AM [facility] Specific [place] UA 1.040(H) 1.005 - 1.030 07/20/2025 8:38 AM [facility] Blood UA Trace(A) Negative 07/20/2025 8:38 AM [facility] pH UA 5.5 5.0 - 8.0 07/20/2025 8:38 AM [facility] Protein UA Trace(A) Negative 07/20/2025 8:38 AM [facility] Urobilinogen UA Normal Normal mg/dL 07/20/2025 8:38 AM [facility] Nitrite UA Negative Negative 07/20/2025 8:38 AM [facility] Leukocyte Esterase UA 75 CRISTY/uL(A) Negative 07/20/2025 8:38 AM [facility] RBC UA 3-5 0 - 5 # /hpf 07/20/2025 8:38 AM [facility] WBC UA 6-10(A) 0 - 5 # /hpf 07/20/2025 8:38 AM [facility] Bacteria UA None Seen None Seen 07/20/2025 8:38 AM [facility] Squamous Epithelial Cells 0-2 0 - 5 /hpf 07/20/2025 8:38 AM [facility] Mucus UA 1+ /LPF 07/20/2025 8:38 AM [facility] Reflex Status Culture to follow 07/20/2025 8:38 AM [facility] Urine URINE SPECIMEN OBTAINED BY CLEAN CATCH PROCEDURE / Unknown Collection / Unknown 07/20/2025 7:57 AM CDT 07/20/2025 8:01 AM CDT Juanis Kelly MD LAB - URINALYSIS ORDERABLES Fi nal Result Performing Organization Address [facility]/ZIP Co de Phone Number [address] [address], [place] [phone] * CULTURE URINE (07/20/2025 7:57 AM CDT) Pathologist [facility] Culture Urine No growth (<100 CFU/mL) MORENITA 07/21/2025 3:16 PM CDT [facility] Urine URINE SPECIMEN OBTAINED BY CLEAN CATCH PROCEDURE / Unknown Collection / Unknown 07/20/2025 7:57 AM CDT 07/20/2025 8:01 AM CDT Juanis Kelly MD LAB - MICROBIOLOGY ORDERABLES Final Result Performing Organization Address [facility] Co de Phone Number [facility] [address] [place] [address], [facility] [phone] * VANCOMYCIN LEVEL RANDOM (07/19/2025 9:55 PM CDT) [facility] Vancomycin Random 6.7 Therapeutic Ranges not established for random specimens ug/mL 07/19/2025 11:00 PM CDT [facility] Blood BLOOD SPECIMEN / Unknown Lab Venipuncture / Unknown 07/19/2025 9:55 PM CDT 07/19/2025 9:59 PM CDT Narrative [facility] - 07/19/2025 11:00 PM CDT See institution protocol. Result [facility] Natalya Dozier MD LAB - CHEMISTRY ORDERABLES Final Result Performing Organization Address [facility]/ZIP Co de Phone Number [address] [address], [place] [phone] * CULTURE WOUND+GRAM STAIN (07/19/2025 8:48 PM CDT) [facility] Culture No growth MORENITA 07/22/2025 5:07 AM CDT [facility] Gram Stain Rare Polymorphonuclear cells 07/22/2025 5:07 AM CDT [facility] Gram Stain No organisms seen 025 5:07 AM CDT [facility] Gram Stain Heavy Red blood cells 07/22/2025 5:07 AM CDT [facility] Microbiology ENTIRE PERINEUM / Unknown Collection / Unknown 07/19/2025 8:48 PM CDT 07/19/2025 8:50 PM CDT Juanis Kelly MD LAB - MICROBIOLOGY ORDERABLES Final Result [facility] [address] [place] [address], [facility] [phone] * (ABNORMAL) DIFFERENTIAL MANUAL (07/19/2025 6:25 PM CDT) Neutrophil % 63 41 - 74 % 07/19/2025 7:22 PM [facility] Lymphocyte % 24 17 - 47 % 07/19/2025 7:22 PM [facility] Monocyte % 9 3 - 11 % 07/19/2025 7:22 PM [facility] Eosinophil % 4 0 - 7 % 07/19/2025 7:22 PM [facility] Neutrophil Absolute 10.14(H) 1.60 - 7.50 x10E9/L 07/19/2025 7:22 PM [facility] Lymphocyte Absolute 3.86 1.00 - 4.40 x10E9/L 07/19/2025 7:22 PM [facility] Monocyte Absolute 1.45(H) 0.15 - 1.00 x10E9/L 07/19/2025 7:22 PM [facility] Eosinophil Absolute 0.64(H) 0.00 - 0.60 x10E9/L 07/19/2025 7:22 PM [facility] RBC Morphology REVIEWED 07/19/2025 7:22 PM [facility] Giant Platelets PRESENT(A) (none) 07/19/2025 7:22 PM [facility] Large Platelets PRESENT(A) (none) 07/19/2025 7:22 PM [facility] Platelet Clumps PRESENT(A) (none) 07/19/2025 7:22 PM [facility] Blood BLOOD SPECIMEN / Unknown Venipuncture / Unknown 07/19/2025 6:25 PM CDT 07/19/2025 6:26 PM CDT us Juanis Kelly MD LAB - HEMATOLOGY ORDERABLES Fi nal Result [facility] [address] [place] [address], [facility] [phone] * (ABNORMAL) CBC W AUTO DIFFERENTIAL (07/19/2025 6:25 PM CDT) WBC 16.1(H) 4.0 - 10.7 x10E9/L 07/19/2025 7:22 PM [facility] RBC Count 4.54 4.30 - 5.80 x10E12/L 07/19/2025 7:22 PM [facility] Hemoglobin 13.7 13.3 - 17.5 g/dL 07/19/2025 7:22 PM [facility] Hematocrit 40.3 38.7 - 51.1 % 07/19/2025 7:22 PM [facility] MCV 88.8 80.0 - 98.0 fL 07/19/2025 7:22 PM [facility] MCH 30.2 26.7 - 33.6 pg 07/19/2025 7:22 PM [facility] MCHC 34.0 31.7 - 36.3 g/dL 07/19/2025 7:22 PM [facility] RDW-CV 13.1 11.3 - 14.8 % 07/19/2025 7:22 PM [facility] Platelet Count 07/19/2025 7:22 PM [facility] Comment: Platelets clumped on slide but appears adequate. Recommend repeat with a sodium citrate blue top tube. This is a corrected result. Previous result was 194 x10E9/L on 07/19/2025 at 1921 CDT MPV 07/19/2025 7:22 PM [facility] Comment: Unable to report This is a corrected result. Previous result was 10.5 fL on 07/19/2025 at 1921 CDT Blood BLOOD SPECIMEN / Unknown Venipuncture / Unknown 07/19/2025 6:25 PM CDT 07/19/2025 6:26 PM CDT us Juanis Kelly MD LAB - HEMATOLOGY ORDERABLES Fi nal Result [facility] [address] [place] [address], [facility] [phone] * (ABNORMAL) COMPREHENSIVE METABOLIC PANEL (07/19/2025 6:25 PM CDT) BUN 12 7 - 26 mg/dL 07/19/2025 6:57 PM [facility] Creatinine 0.81 0.71 - 1.16 mg/dL 07/19/2025 6:57 PM [facility] Sodium 135(L) 136 - 145 mmol/L 07/19/2025 6:57 PM [facility] Potassium 3.6 3.5 - 4.5 mmol/L 07/19/2025 6:57 PM [facility] Chloride 99 98 - 107 mmol/L 07/19/2025 6:57 PM [facility] CO2 24 22 - 29 mmol/L 07/19/2025 6:57 PM [facility] Glucose 89 70 - 99 mg/dL 07/19/2025 6:57 PM [facility] Calcium 9.4 8.4 - 10.2 mg/dL 07/19/2025 6:57 PM [facility] Protein Total 8.3 6.0 - 8.3 g/dL 07/19/2025 6:57 PM [facility] Albumin 3.3(L) 3.4 - 5.0 g/dL 07/19/2025 6:57 PM [facility] Bilirubin Total 0.5 0.2 - 1.2 mg/dL 07/19/2025 6:57 PM [facility] Alkaline Phosphatase 71 40 - 150 U/L 07/19/2025 6:57 PM [facility] ALT 18 5 - 55 U/L 07/19/2025 6:57 PM [facility] AST 34 5 - 34 U/L 07/19/2025 6:57 PM [facility] Anion Gap 12 6 - 16 07/19/2025 6:57 PM [facility] BUN/Creatinine Ratio 15 7 - 23 07/19/2025 6:57 PM [facility] Osmolality Calculated 279 275 - 295 mOsm/kg 07/19/2025 6:57 PM [facility] Albumin/Globulin Ratio 0.7(L) 1.1 - 2.3 07/19/2025 6:57 PM [facility] eGFR by CKD-EPI >90 >=90 mL/min/1.7 3 m2 07/19/2025 6:57 PM [facility] Comment:Estimated Glomerular Filtration Rate (eGFR) calculated using the CKD-EPI Creatinine Equation (2020), per the National Kidney Foundation and [place] Society of Nephrology recommendations. Blood BLOOD SPECIMEN / Unknown Venipuncture / Unknown 07/19/2025 6:25 PM CDT 07/19/2025 6:26 PM CDT us Juanis Kelly MD LAB - CHEMISTRY ORDERABLES Fin al Result Performing Organization Address [facility] Co de Phone Number [address] [address], [facility] [phone] * LACTIC ACID BLOOD (07/19/2025 6:25 PM CDT) Lactic Acid-Stat 1.8 <=2.0 mmol/L 07/19/2025 6:55 PM T [facility] Blood BLOOD SPECIMEN / Unknown Venipuncture / Unknown 07/19/2025 6:25 PM CDT 07/19/2025 6:26 PM CDT us Juanis Kelly MD LAB - CHEMISTRY ORDERABLES Fin al Result [facility] [address] [place] [address], [facility] [phone] from Last 3 Months Insurance [facility] [address] [facility] SAMIRA JONES [id number] Advance Directives * Full Code (Latest Code Status on File) Date Activated Date Inactivated Comments 07/19/2025 9:15 PM 07/21/2025 1:00 PM Care Teams Legislative Analyst Relationship Specialty Start Date End Date Court Phillips APNP-[address] [address] PCP - General Family Medicine 07/19/25
--- OUTSIDE RECORDS SUMMARY | 2025-08-06 14:03 | XMS_ITS | Encounter Summary ---
Author Organization [facility] Address [address] [place] [address] Phone Care Team Providers Care Nuclear Medicine Physician Name Role Phone Caridad Chase APRN, CNP Primary Care Provider Reason for Visit * Reason Comments Medication Refill Encounter Details Date Type Department Care Team (Late st Contact Info) Description 08/22/2023 Refill [facility] [address] [place] [id number] Segundo Tobar MD [address] [place], [place] [id number] Medication Refill Social History Tobacco Use Types Packs/Day Years Used Date Smoking Tobacco: Every Day Cigarettes Smokeless Tobacco: Never Alcohol Use Standard Drinks/Week Comments Not Currently 10 (1 standard drink = 0.6 oz pu re alcohol) Sex and Gender Information Value Date Recorded Sex Assigned at Not on file Legal Sex Male 1:52 PM CDT Gender Identity Not on file Sexual Orientation Not on file COVID-19 Exposure Response Date Recorded In the last 10 days, have yo u been in contact with someone who was confirmed or suspected to have Coronavirus/COVID-19? No / Unsure 07/31/2023 8:30 AM WAX CUTTER documented as of this encounter Plan of Treatment Not on file documented as of this encounter Visit Diagnoses Not on filedocumented in this encounter Care Teams Nuclear Medicine Physician Relationship Specialty Start Date End Date Caridad Chase APRN, [place] [address] [place] [address] PCP - General Certified Nurse Practitioner 05/01/23 documented as of this encounter
--- OUTSIDE RECORDS SUMMARY | 2025-08-06 14:03 | XMS_ITS | Clinical Summary ---
Author Organization [facility] Address [address], [facility] [address] [place] [address] Phone Care Team Providers Care Laundry Manager Name Role Phone Caridad Chase APRN, INTEGRATED LOGISTICS PROGRAMS DIRECTOR Primary Care Provider Allergies No known active allergies Medications Xarelto 20 MG Tablet 05/18/20 23 Active cyanocobalamin 1000 MCG Tablet TAKE 2,000 MCG BY MOUTH DAILY FOR 14 DAYS, THEN 1,000 MCG DAILY. 04/24/20 23 Active divalproex (DEPAKOTE ER) 500 MG TABLET SR 24 HR 2 times daily. 0 23 Active rosuvastatin (CRESTOR) 20 MG Tablet TAKE 1 TABLET BY MOUTH NIGHTLY AT BEDTIME 05/01/20 23 Active pantoprazole (PROTONIX) 20 MG Tablet Delayed Response Take 20 mg by mouth daily. 05/01/20 23 Active ondansetron (ZOFRAN-ODT) [address] 1 TABLET BY TRANSLINGUAL ROUTE EVERY 6 HOURS NEEDED 05/14/20 23 Active meclizine (ANTIVERT) 25 MG Tablet Take 25 mg by mouth 3 times daily as needed. Active hydroCHLOROthiazid e 12.5 MG Tablet Take 12.5 mg by mouth daily. Active Potassium Chloride ER (KLORCON) 20 MEQ Tablet Controlled Release Take 40 mEq by mouth daily. 12/04/19 24 Active Ajovy 225 MG/1.5ML Solution Auto-injector 225 mg by Subcutaneous route. 04/02/20 24 Active folic acid (FOLVITE) 1 MG TabletIndications: Elevated serum immunoglobulin free light chain level,Anemia, unspecified type Take 1 Tablet by mouth daily. 30 Tablet 3 10/07/19 25 Active Active Problems Problem Noted Date Diagnosed Date DVT (deep venous thrombosis) 05/30/2023 Pulmonary embolism 05/30/2023 CVA (cerebral vascular accident) 05/30/2023 Migraine 05/30/2023 Family History Medical History Relation Name Comments Aneurysm Brother Seizures Brother Stroke Brother Congestive Heart Failure Mother Diabetes Mother Relation Name Status Comments Brother Mother Social History Tobacco Use Types Packs/Day Years Used Date Smoking Tobacco: Every Day Cigarettes Smokeless Tobacco: Never Tobacco Cessation:Ready to Q uit: Yes; Counseling Given: Yes Alcohol Use Standard Drinks/Week Comments Not Currently 10 (1 standard drink = 0.6 oz pu re alcohol) Sex and Gender Information Value Date Recorded Sex Assigned at Not on file Legal Sex Male 1:52 PM CDT Gender Identity Not on file Sexual Orientation Not on file Last Filed Vital Signs Vital Sign Reading Time Taken Comments Blood Pressure 130/82 05/23/2024 9:11 AM CDT Pulse 101 05/23/2024 9:11 AM CDT Temperature 36.9 C (98.4 F) 05/23/2024 9:11 AM CDT Respiratory Rate 18 05/23/2024 9:11 AM CDT Oxygen Saturation 97% 05/23/2024 9:11 AM CDT Inhaled Oxygen Concentration - - Weight 106.8 kg (235 lb 6.4 oz) 05/23/2024 9:11 AM CDT Height 190.5 cm (6' 3) 05/23/2024 9:11 AM CDT Body Mass Index 29.42 05/23/2024 9:11 AM CDT Plan of Treatment Health Maintenance Due Date Last Done Comments Hepatitis C Virus (HCV) Screening 1985 TdaP Immunization 1985 Hepatitis B Immunization (1 of 3 - 19+ 3-dose series) 01/30/2004 Pneumococcal Immunization Combined (1 of 2 - PCV) 01/30/2004 Human Papillomavirus (HPV) Immunization (1 - 3-dose SCDM series) 01/30/2012 Influenza Immunization (#1) 2025 SARS-COV-2 Immunization ( - 2025-26 season) 2025 01/10/2021, 12/20/2020 Respiratory Syncytial Virus (RSV) Immunization (Adult) (1 - 1-dose 75+ series) 01/30/2060 Meningococcal Immunization (ACWY) Aged Out No longer eligible b ased on patient's age to complete this topic Rotavirus Immunization Aged Out No lo nger eligible based on patient's age to complete this topic Insurance [employer]AR[employer] nougat cutter machine Care Teams Laundry Manager Relationship Specialty Start Date End Date Caridad Chase, IT SECURITY ADMINISTRATOR, INTEGRATED LOGISTICS PROGRAMS DIRECTOR [address] [place] [address] PCP - General Certified Nurse Practitioner 05/01/23
--- OUTSIDE RECORDS SUMMARY | 2025-08-06 14:03 | XMS_ITS | Encounter Summary ---
Author Organization [facility] Healthcare Address [address] [place] [address] Care Team Providers Care Loom Technician Name Role Phone Unknown, [place] Primary Care Provider Unavail able Encounter Details Date Type Department Care Team (Late st Contact Info) Description 07/22/2025 Results Follow-Up [facility] Medical [facility]ient Care at [address] [address] Ryann Emmanuel NP [address] [place] [address] [address] [place] [address] Aerobic and anaerobic culture and gram stain Abscess Peritoneum Social History Tobacco Use Types Packs/Day Years Used Date Smoking Tobacco: Never Assessed Sex and Gender Information Value Date Recorded Sex Assigned at Not on file Legal Sex Male 7:49 PM SURGICAL TRAINING SPECIALIST Gender Identity Not on file Sexual Orientation Not on file documented as of this encounter Plan of Treatment Not on file documented as of this encounter Visit Diagnoses Not on filedocumented in this encounter Care Teams Loom Technician Relationship Specialty Start Date End Date Unknown, Lucy PCP - General 03/16/25 documented as of this encounter
--- OUTSIDE RECORDS SUMMARY | 2025-08-06 14:03 | XMS_ITS | Encounter Summary ---
Author Organization [facility] Address [address] [place] [address] Phone Care Team Providers Care Research Chemical Engineer Name Role Phone Caridad Chase APRN, RAIL ENGINEER Primary Care Provider Reason for Visit * Reason Comments Medication Refill Encounter Details Date Type Department Care Team (Late st Contact Info) Description 06/21/2023 Refill [facility] [address] [place] [phone] Segundo Tobar MD [address] [place], [place] [phone] Medication Refill Social History Tobacco Use Types [...] suspected to have Coronavirus/COVID-19? No / Unsure 06/06/2023 8:17 AM CDT documented as of this encounter Miscellaneous Notes * Telephone Encounter - Ivory Pool RN - 06/21/2023 8:27 AM CDT Refill request from pharmacy. Please fill if appropriate. documented in this encounter Plan of Treatment Not on file documented as of this encounter Visit Diagnoses Not on filedocumented in this encounter Care Teams Research Chemical Engineer Relationship Specialty Start Date End Date Caridad Chase, GMAT TUTOR, RAIL ENGINEER [address] [place] [address] PCP - General Certified Nurse Practitioner 05/01/23 documented as of this encounter
--- OUTSIDE RECORDS SUMMARY | 2025-08-06 14:03 | XMS_ITS | Encounter Summary ---
Author Organization [facility] Address [address] [place] [address] Phone Care Team Providers Care Retort Condenser Attendant Name Role Phone Caridad Chase APRN, SHAPER AND PRESSER Primary Care Provider Encounter Details Date Type Department Care Team (Late st Contact Info) Description 09/04/2024 Telephone [facility] [address] [place] [address] Segundo Tobar MD [address] [place] [address] Social History Tobacco Use Types Packs/Day Years [...] on file documented as of this encounter Miscellaneous Notes * Telephone Encounter - Gema Sharpe - 09/04/2024 3:00 PM CST Patient missed appt left stating to call office for rescheduling sent reminder letter out. SLASHER documented in this encounter Plan of Treatment Not on file documented as of this encounter Visit Diagnoses Not on filedocumented in this encounter Care Teams Retort Condenser Attendant Relationship Specialty Start Date End Date Caridad Chase, MARKETING TEAM LEAD, SHAPER AND PRESSER [address] [place] [address] PCP - General Certified Nurse Practitioner 05/01/23 documented as of this encounter
--- OUTSIDE RECORDS SUMMARY | 2025-08-06 14:03 | XMS_ITS | Clinical Summary ---
Author Organization [facility] [address] Address [address] [place] [address] Care Team Providers Care Wind Project Manager Name Role Phone Unknown, Notinfile Primary Care Provider Unavail able Allergies No known active allergies Medications cyanocobalamin (Vitamin B-12) 1,000 mcg tablet TAKE 2,000 MCG BY MOUTH DAILY FOR 14 DAYS, THEN 1,000 MCG DAILY. 3 Active folic acid (FOLVITE) 1 mg tablet Take 1 tablet (1,000 mcg total) by mouth daily 3 Active gabapentin (NEURONTIN) 300 mg capsule Take 1 capsule (300 mg total) by mouth nightly 5 02/13/20 26 Active hydroCHLOROthiazide 12.5 mg tablet Take 1 tablet (12.5 mg total) by mouth every morning Active meclizine (ANTIVERT) 25 mg tablet 3 Active ondansetron ODT (ZOFRAN-ODT) [address] & DISSOLVE 1 TABLET ON THE TONGUE EVERY 6 HOURS NEEDED [address] (PROTONIX) 20 mg EC tablet Take 1 tablet (20 mg total) by mouth daily 3 Active potassium chloride ER (Klor-Con M20) 20 mEq CR tablet TAKE 1 TABLET BY MOUTH TWICE A DAY FOR 3 DAYS Active Xarelto 20 mg tablet Take 1 tablet (20 mg total) by mouth daily 3 Active verapamiL (CALAN) 40 mg tablet Take 1 tablet (40 mg total) by mouth 2 (two) times a day 5 Active Active Problems No known active problems Encounters Date Type Department Care Team Description 07/22/2025 Results Follow-Up [facility] Medical Group Convenient Care at [address] [address] Ryann Emmanuel NP Aerobic and anaerobic culture and gram stain Abscess Peritoneum 07/18/2025 7:15 PM CDT Office Visit [facility] Medical [facility] Convenient Care at [address] [address] Ryann Emmanuel NP Abscess, scrotum (Primary Dx) 07/18/2025 6:46 PM CDT - 07/18/2025 11:59 PM CDT Hospital Encounter [place] [id number] Abscess, scrotum Discharge Disposition: Discharge to home or self care from Last 3 Months Social History Tobacco Use Types Packs/Day Years Used Date Smoking Tobacco: Never Assessed Sex and Gender Information Value Date Recorded Sex Assigned at Not on file Legal Sex Male 7:49 PM BROADCAST TRAFFIC COORDINATOR Gender Identity Not on file Sexual Orientation Not on file Last Filed Vital Signs Vital Sign Reading Time Taken Comments Blood Pressure 109/84 07/18/2025 6:12 PM CDT Pulse 120 07/18/2025 6:12 PM CDT Temperature 36.8 C (98.3 F) 07/18/2025 6:12 PM CDT Respiratory Rate 20 07/18/2025 6:12 PM CDT Oxygen Saturation 99% 07/18/2025 6:12 PM CDT Inhaled Oxygen Concentration - - Weight 110 kg (242 lb 6.4 oz) 07/18/2025 6:12 PM CDT Height - - Body Mass Index - - Plan of Treatment Health Maintenance Due Date Last Done Comments Depression Screening 1985 Hepatitis C Screening 1985 Prostate Cancer Screening-PSA 1985 DTaP/Tdap/Td Vaccine (1 - Tdap) 01/30/1996 Varicella Vaccines (1 of 2 - 13+ 2-dose series) 1998 Hepatitis B Screening 2003 Regular Well Visit/Exam 18-64 2003 HPV Vaccines (1 - 3-dose SCD M series) 01/30/2012 Covid-19 Vaccine (2024-2 6 season) 2025 01/10/2021, 12/20/2020 Influenza Vaccine (#1) 2025 Pneumococcal vaccine <65 Aged Out No longer eligible based on patient's age to complete this topic Procedures Procedure Name Priority Date/Time Associated Diagnosis Comments AEROBIC AND ANAEROBIC CULTURE AND GRAM STAIN Routine 07/18/2025 6:46 PM CDT Abscess, scrotum from Last 3 Months Results * (ABNORMAL) Aerobic and anaerobic culture and gram stain Abscess Peritoneum (07/18/2025 6:46 PM CDT) Direct Specimen Exam Stain: No polymorphonuclear leukocytes seen. Rare Gram Positive [facility] Comment:Testing performed by : [facility], [address] [place]., [address] Report Final Report: Moderate Mixed aerobic and anaerobic microorganisms Includes the following: Few Bacteroides fragilis (.) [facility] Comment:Testing performed by : [facility], [address] [place]., [address] Organism MIXED AEROBIC AND ANAEROBIC MICROORGANISMS [facility] Organism BACTEROIDES FRAGILIS [facility] Abscess (Peritoneum) 07/18/2025 6:46 PM CDT 07/19/2025 12:20 AM CDT Narrative [facility] - 07/22/2025 11:20 AM CDT Testing performed by [facility] Microbiology Laboratory ([phone]) Specimens submitted from normally sterile body sites will have all bacterial morphotypes identified. Specimens that contain grossly mixed valerie and/or are from body sites that are not normally sterile will be examined for Staphylococcus aureus, Pseudomonas aeruginosa, beta-hemolytic strep, vancomycin-resistant Enterococcus, Bacteroides, Parabacteroides, Clostridium perfringens and fungus. If any of these are isolated, the organism will be reported. Current interpretive data was last revised on 2019. Ryann Emmanuel NP LAB MICROBIOLOGY - GENERAL ORD ERABLES Final Result [facility] [address] Department [place] [address] from Last 3 Months Insurance [facility] Care Teams Wind Project Manager Relationship Specialty Start Date End Date Unknown, Notinfile PCP - General 03/16/25
--- OUTSIDE RECORDS SUMMARY | 2025-08-06 14:03 | XMS_ITS | Clinical Summary ---
Author Organization [facility] Address [address] [facility] [place] [address] Care Team Providers Care Naval Gunfire Liaison Officer Name Role Phone Solitario Mckeon MD Primary Care Provider [phone] Allergies No known active allergies Medications albuterol HFA 90 mcg inhaler 02/02/2019 Acti ve oxyCODONE-aceta minophen (PERCOCET) 5-325 mg tablet TAKE 1 TO 2 TABLETS BY MOUTH EVERY 4 TO 6 HOURS NEEDED FOR PAIN . DO NOT EXCEED 6 PER 24 HOURS 0 02/27/2019 Active montelukast (SINGULAIR) 10 mg tablet 02/02/2019 Active fexofenadine (LENA) 180 mg tablet Take 180 mg by mouth daily. Active ELIQUIS 5 mg tablet TAKE 1 TABLET BY MOUTH TWICE A DAY 180 Tablet 08/09/2019 Active Active Problems Problem Noted Date Diagnosed Date Acute saddle pulmonary embolism without acute co r pulmonale 05/30/2019 Family History Medical History Relation Name Comments Breast Cancer Mother Cancer Mother Diabetes Mother Relation Name Status Comments Brother Alive Father Mother Sister Alive Social History Tobacco Use Types Packs/Day Years Used Date Smoking Tobacco: Every Day Cigarettes Smokeless Tobacco: Never Comments:pt only smokes 3 ci gs a day Alcohol Use Standard Drinks/Week Comments Yes 0 (1 standard drink = 0.6 oz pur e alcohol) Sex and Gender Information Value Date Recorded Sex Assigned at Not on file Legal Sex Male 11:16 PM CDT Gender Identity Not on file Sexual Orientation Not on file Last Filed Vital Signs Vital Sign Reading Time Taken Comments Blood Pressure 143/102 05/30/2019 1:09 PM CDT Pulse 94 05/30/2019 1:09 PM CDT Temperature 36.8 C (98.2 F) 05/30/2019 1:09 PM CDT Respiratory Rate 20 05/30/2019 1:09 PM CDT Oxygen Saturation 97% 05/30/2019 1:09 PM CDT Inhaled Oxygen Concentration - - Weight 119 kg (262 lb 4.8 oz) 05/30/2019 1:09 PM CDT Height 188 cm (6' 2) 05/30/2019 1:09 PM CDT Body Mass Index 33.68 05/30/2019 1:09 PM CDT Plan of Treatment Health Maintenance Due Date Last Done Comments DTAP/TDAP/TD VACCINES (1 - Tdap) 01/30/2004 HEPATITIS B VACCINES (1 of 3 - 19+ 3-dose series) 03/2004 HPV VACCINES (1 - 3-dose SCDM series) 01/30/2012 INFLUENZA VACCINE (#1) 2025 Insurance [facility] [place] [id number] [facility] Address: [facility] [address] [place] [address] Care Teams Naval Gunfire Liaison Officer Relationship Specialty Start Date End Date Solitario Mckeon MD PCP - General Family Practice 03/14/19
--- OUTSIDE RECORDS SUMMARY | 2025-08-06 14:03 | XMS_ITS | Encounter Summary ---
Author Organization [facility] Address [address] [place] [address] Phone Care Team Providers Care Military Pilot Name Role Phone Caridad Chase APRN, SESSIONS CLERK Primary Care Provider Reason for Visit * Reason Comments Medication Refill Encounter Details Date Type Department Care Team (Late st Contact Info) Description 04/06/2025 Refill [facility] [address] [place] [phone] Zoya Wong, PEG, SESSIONS CLERK [address] [place] [address] Medication Refill Social History Tobacco Use Types [...] Telephone Encounter - Ivory Pool RN - 04/07/2025 8:21 AM CDT Refill request from pharmacy. Please fill if appropriate. documented in this encounter Plan of Treatment Not on file documented as of this encounter Visit Diagnoses Diagnosis Elevated serum immunoglobulin free light chain level Other nonspecific findings on examination of blood Anemia, unspecified type documented in this encounter Care Teams Military Pilot Relationship Specialty Start Date End Date Caridad Chase, CERTIFIED PESTICIDE APPLICATOR, SESSIONS CLERK [address] [place] [address] [place] [address] PCP - General Certified Nurse Practitioner 05/01/23 documented as of this encounter
--- NOTE | 2025-08-06 14:10 | ECG_ITS ---
Test Date: 2025-08-06 14:36:25 Measurements Intervals [place] Rate: 87 P: 21 [place]: 157 QRS: -9 QRSD: 88 T: 30 QT: 383 QTc: 463 Interpretive Statements SINUS RHYTHM No previous ECG available for comparison Electronically Signed On 08-06-2025 22:28:41 CONFIGURATION MANAGEMENT ARCHITECT by Melchor Rowe D.O
[2025-08-06 14:36] LABS: Hematocrit 40.4 % (42.0-52.0); Hemoglobin 13.7 g/dL (14.0-18.0); Immature Granulocyte Percent A 0.1 % (0-0.5); Lymphocytes Absolute Auto 5.09 K/mm3 (0.9-3.2); Mean Corpuscular HGB Conc 33.9 g/dl (32-36); Mean Corpuscular Hemoglobin 29.5 pg (26-34); Mean Corpuscular Volume 86.9 fl (80-100); Nucleated Red Blood Cells Absolute Auto 0.000 K/mm3 (0.0-0.012); Nucleated Red Blood Cells Perc 0.0 % (0.0-0.2); Platelet Count Result 142 k/mm3 (150-375); Red Blood Count 4.65 M/mm3 (4.6-6.20); White Blood Count 9.2 K/mm3 (4.5-10.0)
[2025-08-06 14:51] LABS: Alanine Aminotransferase 40 U/L (6-50); Albumin Level 4.2 g/dL (3.5-5.1); Alkaline Phosphatase 90 U/L (38-126); Anion Gap 7 mmol/L (4-12); Aspartate Amino Transferase 43 U/L (17-59); Bilirubin,Total 0.6 mg/dL (0.2-1.3); Blood Urea Nitrogen 12 mg/dL (9-20); Calcium 9.8 mg/dL (8.4-10.2); Carbon Dioxide 23 mmol/L (22-30); Chloride 100 mmol/L (98-107); Estimated CRCL calculation 73 ml/min; Estimated Glomerular Filt Rate 54; Glucose 109 mg/dL (65-110); Lipase 154 U/L (23-300); Potassium 4.2 mmol/L (3.4-5.0); Sodium 130 mmol/L (137-145); Total Protein 8.6 g/dL (6.3-8.2)
[2025-08-06 14:57] LABS: INR 1.1; Prothrombin Time 13.8 Seconds (11.1-14.7)
[2025-08-06 14:58] LABS: Partial Thromboplastin Time 29.8 Seconds (22.3-36.8)
[2025-08-06 15:01] LABS: Troponin I < 0.012 ng/mL (0.000-0.034)
--- OUTSIDE RECORDS SUMMARY | 2025-08-06 16:09 | XMS_ITS | Clinical Summary ---
Author Organization [facility] Address [address] [place] [address] Care Team Providers Care Groundwater Consultant Name Role Phone Court Phillips-AIR AND WATER TESTER Primary Care Provider [phone] Source Comments [facility],non-owned Affiliates and Associated Physician Practices is amultiple site organization consisting of ambulatory clinics and hospital sitesin [place], [place], [place] and [place]. This disclosure is being madepursuant to the Care Everywhere program and may not contain all information available regarding this patient. Last updated 18.[facility] Allergies No known active allergies Medications * [...] Team Description 07/22/2025 Telephone Transitional Care at [facility] [address] [place] [address] Radha Martinez RN Transitional Care 07/19/2025 6:02 PM CDT - 07/21/2025 10:50 AM CDT Hospital Encounter [facility] [address] [place] [address] Juanis Kelly MD Jain, Priya, MD Wheeler, [...] medical care, and heating? Patient declined 07/19/2025 [facility] [place] of Occupat ional Health - Occupational Stress [...] any time in the past 12 m [facility], were you homeless or living in a fci (including now)? No 07/19/2025 Sex and Gender Information Value Date Recorded Sex Assigned at Not on file Legal Sex Male 10:21 AM MANAGER DATA WAREHOUSING Gender Identity Not on file Sexual Orientation [...] st Contact Info) Description 08/13/2025 12:45 PM MANAGER DATA WAREHOUSING Office Visit [facility] [address] [place] [phone] Isreal Hdz MD [address] [place] [phone] Health Maintenance Due Date Last Done Comments [...] - 10.7 x10E9/L 07/21/2025 2:18 AM CDT [facility] RBC Count 4.07(L) 4.30 - 5.80 x10E12/L 07/21/2025 2:18 AM CDT [facility] Hemoglobin 12.2(L) 13.3 - 17.5 g/dL 07/21/2025 2:18 AM T [facility] Hematocrit 36.1(L) 38.7 - 51.1 % 07/21/2025 2:18 AM CDT [facility] MCV 88.7 80.0 - 98.0 fL 07/21/2025 2:18 AM [facility] MCH 30.0 26.7 - 33.6 pg 07/21/2025 2:18 AM [facility] MCHC 33.8 31.7 - 36.3 g/dL 07/21/2025 2:18 AM [facility] RDW-CV 13.1 11.3 - 14.8 % 07/21/2025 2:18 AM [facility] Platelet Count 205 150 - 420 x10E9/L 07/21/2025 2:18 AM [facility] MPV 10.0 7.8 - 11.4 fL 07/21/2025 2:18 AM [facility] Blood BLOOD SPECIMEN / Unknown Lab Venipuncture / Unknown 07/21/2025 1:49 AM CDT 07/21/2025 2:09 AM CDT us Natalya Dozier MD LAB - HEMATOLOGY ORDERABLES Fabby peralta Result [address] [address], [place] [phone] * (ABNORMAL) RENAL FUNCTION PANEL (07/21/2025 1:49 AM CDT) Only the most recent of2 resultswithin the time period is included. BUN 12 7 - 26 mg/dL 07/21/2025 2:35 AM [facility] Creatinine 1.13 0.71 - 1.16 mg/dL 07/21/2025 2:35 AM [facility] Sodium 135(L) 136 - 145 mmol/L 07/21/2025 2:35 AM [facility] Potassium 3.6 3.5 - 4.5 mmol/L 07/21/2025 2:35 AM [facility] Chloride 103 98 - 107 mmol/L 07/21/2025 2:35 AM [facility] CO2 25 22 - 29 mmol/L 07/21/2025 2:35 AM [facility] Glucose 81 70 - 99 mg/dL 07/21/2025 2:35 AM [facility] Albumin 3.0(L) 3.4 - 5.0 g/dL 07/21/2025 2:35 AM CDT [facility] Calcium 9.1 8.4 - 10.2 mg/dL 07/21/2025 2:35 AM [facility] Phosphorus 3.2 2.8 - 5.1 mg/dL 07/21/2025 2:35 AM [facility] Anion Gap 7 6 - 16 07/21/2025 2:35 AM [facility] BUN/Creatinine Ratio 11 7 - 23 07/21/2025 2:35 AM [facility] Osmolality Calculated 279 275 - 295 mOsm/kg 07/21/2025 2:35 AM [facility] eGFR by CKD-EPI 84(L) >=90 mL/min/1.7 3 m2 07/21/2025 2:35 AM [facility] Comment:Estimated Glomerular Filtration Rate (eGFR) calculated using the CKD-EPI Creatinine Equation (2020), per the National Kidney Foundation and [place] Society of Nephrology recommendations. Blood BLOOD SPECIMEN / Unknown Lab Venipuncture / Unknown 07/21/2025 1:49 AM CDT 07/21/2025 2:09 AM CDT us Natalya Dozier MD LAB - CHEMISTRY ORDERABLES Final Result [address] [address], [place] [phone] * MAGNESIUM BLOOD (07/21/2025 1:49 AM CDT) Only the most recent of2 resultswithin the time period is included. Magnesium 1.8 1.6 - 2.6 mg/dL 07/21/2025 2:35 AM CDT [facility] Blood BLOOD SPECIMEN / Unknown Lab Venipuncture / Unknown 07/21/2025 1:49 AM CDT 07/21/2025 2:09 AM CDT Natalya Dozier MD LAB - CHEMISTRY ORDERABLES Final Result [address] [place] [address], [place] [phone] * (ABNORMAL) URINALYSIS REFLEX MICROSCOPIC REFLEX CULTURE (07/20/2025 7:57 AM [facility]) Color UA Yellow Yellow, Straw 07/20/2025 8:38 AM [facility] Clarity UA Clear Clear 07/20/2025 8:38 AM [facility] Glucose UA Normal Normal 07/20/2025 8:38 AM [facility] Bilirubin UA Negative Negative 07/20/2025 8:38 AM [facility] Ketone UA 1+(A) Negative 07/20/2025 8:38 AM [facility] Specific [place] UA 1.040(H) 1.005 - 1.030 07/20/2025 8:38 AM [facility] Blood UA Trace(A) Negative 07/20/2025 8:38 AM [facility] pH UA 5.5 5.0 - 8.0 07/20/2025 8:38 AM [facility] Protein UA Trace(A) Negative 07/20/2025 8:38 AM [facility] Urobilinogen UA Normal Normal mg/dL 07/20/2025 8:38 AM [facility] Nitrite UA Negative Negative 07/20/2025 8:38 AM [facility] Leukocyte Esterase UA 75 CRISTY/uL(A) Negative 07/20/2025 8:38 AM [facility] RBC UA 3-5 0 - 5 # /hpf 07/20/2025 8:38 AM [facility] WBC UA 6-10(A) 0 - 5 # /hpf 07/20/2025 8:38 AM [facility] Bacteria UA None Seen None Seen 07/20/2025 8:38 AM [facility] Squamous Epithelial Cells 0-2 0 - 5 /hpf 07/20/2025 8:38 AM [facility] Mucus UA 1+ /LPF 07/20/2025 8:38 AM [facility] Reflex Status Culture to follow 07/20/2025 8:38 AM [facility] Urine URINE SPECIMEN OBTAINED BY CLEAN CATCH PROCEDURE / Unknown Collection / Unknown 07/20/2025 7:57 AM CDT 07/20/2025 8:01 AM CDT Juanis Kelly MD LAB - URINALYSIS ORDERABLES Fi nal Result Performing Organization Address [facility]/ZIP Co de Phone Number [address] [address], [place] [phone] * CULTURE URINE (07/20/2025 7:57 AM CDT) Pathologist [facility] Culture Urine No growth (<100 CFU/mL) MORENITA 07/21/2025 3:[address] [facility] Urine URINE SPECIMEN OBTAINED BY CLEAN CATCH PROCEDURE / Unknown Collection / Unknown 07/20/2025 7:57 AM CDT 07/20/2025 8:01 AM CDT Juanis Kelly MD LAB - MICROBIOLOGY ORDERABLES Final Result Performing Organization Address [facility] Co de Phone Number [facility] [address] [place] [address], [place] [phone] * VANCOMYCIN LEVEL RANDOM (07/19/2025 9:55 PM CDT) [facility] Vancomycin Random 6.7 Therapeutic Ranges not established for random specimens ug/mL 07/19/2025 11:00 PM CDT [facility] Blood BLOOD SPECIMEN / Unknown Lab Venipuncture / Unknown 07/19/2025 9:55 PM CDT 07/19/2025 9:59 PM CDT Narrative [facility] - 07/19/2025 11:00 PM CDT See institution protocol. Result [facility] Natalya Dozier MD LAB - CHEMISTRY ORDERABLES Final Result Performing Organization Address [facility]/ZIP Co de Phone Number [address] [address], [place] [phone] * CULTURE WOUND+GRAM STAIN (07/19/2025 8:48 PM CDT) [facility] Culture No growth MORENITA 07/22/2025 5:[address] [facility] Gram Stain Rare Polymorphonuclear cells 07/22/2025 5:[address] [facility] Gram Stain No organisms seen 025 5:[address] [facility] Gram Stain Heavy Red blood cells 07/22/2025 5:[address] [facility] Microbiology ENTIRE PERINEUM / Unknown Collection / Unknown 07/19/2025 8:48 PM CDT 07/19/2025 8:50 PM CDT Juanis Kelly MD LAB - MICROBIOLOGY ORDERABLES Final Result [facility] [address] [place] [address], [place] [phone] * (ABNORMAL) DIFFERENTIAL MANUAL (07/19/2025 6:25 PM CDT) Neutrophil % 63 41 - 74 % 07/19/2025 7:22 PM [facility] Lymphocyte % 24 17 - 47 % 07/19/2025 7:22 PM [facility] Monocyte % 9 3 - 11 % 07/19/2025 7:22 PM [facility] Eosinophil % 4 0 - 7 % 07/19/2025 7:22 PM [facility] Neutrophil Absolute 10.14(H) 1.60 - 7.50 x10E9/L 07/19/2025 7:22 PM [facility] Lymphocyte Absolute 3.86 1.00 - 4.40 x10E9/L 07/19/2025 7:22 PM [facility] Monocyte Absolute 1.45(H) 0.15 - 1.00 x10E9/L 07/19/2025 7:22 PM [facility] Eosinophil Absolute 0.64(H) 0.00 - 0.60 x10E9/L 07/19/2025 7:22 PM [facility] RBC Morphology REVIEWED 07/19/2025 7:22 PM [facility] Giant Platelets PRESENT(A) (none) 07/19/2025 7:22 PM [facility] Large Platelets PRESENT(A) (none) 07/19/2025 7:22 PM [facility] Platelet Clumps PRESENT(A) (none) 07/19/2025 7:22 PM [facility] Blood BLOOD SPECIMEN / Unknown Venipuncture / Unknown 07/19/2025 6:25 PM CDT 07/19/2025 6:26 PM CDT us Juanis Kelly MD LAB - HEMATOLOGY ORDERABLES Fi nal Result [facility] [address] [place] [address], [place] [phone] * (ABNORMAL) CBC W AUTO DIFFERENTIAL (07/19/2025 6:25 PM CDT) WBC 16.1(H) 4.0 - 10.7 x10E9/L 07/19/2025 7:22 PM [facility] RBC Count 4.54 4.30 - 5.80 x10E12/L 07/19/2025 7:22 PM [facility] Hemoglobin 13.7 13.3 - 17.5 g/dL 07/19/2025 7:22 PM [facility] Hematocrit 40.3 38.7 - 51.1 % 07/19/2025 7:22 PM [facility] MCV 88.8 80.0 - 98.0 fL 07/19/2025 7:22 PM [facility] MCH 30.2 26.7 - 33.6 pg 07/19/2025 7:22 PM [facility] MCHC 34.0 31.7 - 36.3 g/dL 07/19/2025 7:22 PM [facility] RDW-CV 13.1 11.3 - 14.8 % 07/19/2025 7:22 PM [facility] Platelet Count 07/19/2025 7:22 PM [facility] Comment: Platelets clumped on slide but appears adequate. Recommend repeat with a sodium citrate blue top tube. This is a corrected result. Previous result was 194 x10E9/L on 07/19/2025 at 1921 CDT MPV 07/19/2025 7:22 PM [facility] Comment: Unable to report This is a corrected result. Previous result was 10.5 fL on 07/19/2025 at 1921 CDT Blood BLOOD SPECIMEN / Unknown Venipuncture / Unknown 07/19/2025 6:25 PM CDT 07/19/2025 6:26 PM CDT us Juanis Kelly MD LAB - HEMATOLOGY ORDERABLES Fi nal Result [facility] [address] [place] [address], [place] [phone] * (ABNORMAL) COMPREHENSIVE METABOLIC PANEL (07/19/2025 6:25 PM CDT) BUN 12 7 - 26 mg/dL 07/19/2025 6:57 PM [facility] Creatinine 0.81 0.71 - 1.16 mg/dL 07/19/2025 6:57 PM [facility] Sodium 135(L) 136 - 145 mmol/L 07/19/2025 6:57 PM [facility] Potassium 3.6 3.5 - 4.5 mmol/L 07/19/2025 6:57 PM [facility] Chloride 99 98 - 107 mmol/L 07/19/2025 6:57 PM [facility] CO2 24 22 - 29 mmol/L 07/19/2025 6:57 PM [facility] Glucose 89 70 - 99 mg/dL 07/19/2025 6:57 PM [facility] Calcium 9.4 8.4 - 10.2 mg/dL 07/19/2025 6:57 PM [facility] Protein Total 8.3 6.0 - 8.3 g/dL 07/19/2025 6:57 PM [facility] Albumin 3.3(L) 3.4 - 5.0 g/dL 07/19/2025 6:57 PM [facility] Bilirubin Total 0.5 0.2 - 1.2 mg/dL 07/19/2025 6:57 PM [facility] Alkaline Phosphatase 71 40 - 150 U/L 07/19/2025 6:57 PM [facility] ALT 18 5 - 55 U/L 07/19/2025 6:57 PM [facility] AST 34 5 - 34 U/L 07/19/2025 6:57 PM [facility] Anion Gap 12 6 - 16 07/19/2025 6:57 PM [facility] BUN/Creatinine Ratio 15 7 - 23 07/19/2025 6:57 PM [facility] Osmolality Calculated 279 275 - 295 mOsm/kg 07/19/2025 6:57 PM [facility] Albumin/Globulin Ratio 0.7(L) 1.1 - 2.3 07/19/2025 6:57 PM [facility] eGFR by CKD-EPI >90 >=90 mL/min/1.7 3 m2 07/19/2025 6:57 PM [facility] Comment:Estimated Glomerular Filtration Rate (eGFR) calculated using the CKD-EPI Creatinine Equation (2020), per the National Kidney Foundation and [place] Society of Nephrology recommendations. Blood BLOOD SPECIMEN / Unknown Venipuncture / Unknown 07/19/2025 6:25 PM CDT 07/19/2025 6:26 PM CDT us Juanis Kelly MD LAB - CHEMISTRY ORDERABLES Fin al Result Performing Organization Address [facility] Co de Phone Number [address] [address], [place] [phone] * LACTIC ACID BLOOD (07/19/2025 6:25 PM CDT) Lactic Acid-Stat 1.8 <=2.0 mmol/L 07/19/2025 6:55 PM T [facility] Blood BLOOD SPECIMEN / Unknown Venipuncture / Unknown 07/19/2025 6:25 PM CDT 07/19/2025 6:26 PM CDT us Juanis Kelly MD LAB - CHEMISTRY ORDERABLES Fin al Result [facility] [address] [place] [address], [place] [phone] from Last 3 Months Insurance [facility] [place]IRA JONES [id number] Advance Directives * Full Code (Latest Code Status on File) Date Activated Date Inactivated Comments 07/19/2025 9:15 PM 07/21/2025 1:00 PM Care Teams Groundwater Consultant Relationship Specialty Start Date End Date Court Phillips APNP-[address] [address] PCP - General Family Medicine 07/19/25
--- OUTSIDE RECORDS SUMMARY | 2025-08-06 16:09 | XMS_ITS | Clinical Summary ---
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
--- OUTSIDE RECORDS SUMMARY | 2025-08-06 16:09 | XMS_ITS | Encounter Summary ---
Author Organization [facility] Address [address] [place] [address] Phone Care Team Providers Care Homeworker Name Role Phone Caridad Chase APRN, MACHINE FORMER Primary Care Provider Reason for Visit * Reason Comments Medication Refill Encounter Details Date Type Department Care Team (Late st Contact Info) Description 04/06/2025 Refill [facility] [address] [place] [phone] Zoya Wong, PEG, MACHINE FORMER [address] [place] [address] Medication Refill Social History Tobacco Use [...] type documented in this encounter Care Teams Homeworker Relationship Specialty Start Date End Date Caridad Chase, BIN FILLER, MACHINE FORMER [address] [place] [address] [place] [address] PCP - General Certified Nurse Practitioner 05/01/23 documented as of this encounter
--- OUTSIDE RECORDS SUMMARY | 2025-08-06 16:09 | XMS_ITS | Clinical Summary ---
Author Organization [facility] [address] Address [address] [place] [address] Care Team Providers Care Aircraft Magneto Mechanic Name Role Phone Unknown, Notinfile Primary Care [...] Department Care Team Description 07/22/2025 Results Follow-Up [facility] at [address] [address] Ryann Emmanuel NP Aerobic and anaerobic culture and gram stain Abscess Peritoneum 07/18/2025 7:15 PM CDT Office Visit [facility] at [address] [address] Ryann Emmanuel NP Abscess, scrotum (Primary Dx) 07/18/2025 6:46 PM CDT - 07/18/2025 11:59 PM CDT Hospital Encounter [place] [id number] Abscess, scrotum Discharge Disposition: Discharge to home or self care from Last 3 Months Social History Tobacco Use Types Packs/Day Years Used Date Smoking Tobacco: Never Assessed Sex and Gender Information Value Date Recorded Sex Assigned at Not on file Legal Sex Male 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 Gender Identity Not on file Sexual Orientation [...] Gram Positive Cocci Comment:Testing performed by : [facility], [address] [place]., [address] Report Final Report: Moderate Mixed aerobic and anaerobic microorganisms Includes the following: Few Bacteroides fragilis (.) [facility] Comment:Testing performed by : [facility], [address] [place]., [address] Organism MIXED AEROBIC AND ANAEROBIC MICROORGANISMS [facility] Organism BACTEROIDES FRAGILIS [facility] Abscess (Peritoneum) 07/18/2025 6:46 PM CDT 07/19/2025 12:20 AM CDT Narrative [facility] - 07/22/2025 11:20 AM CDT Testing performed by [facility] Microbiology Laboratory ([phone]) Specimens submitted from normally sterile body sites [...] MICROBIOLOGY - GENERAL ORD ERABLES Final Result [facility] [phone] [place] [address] from Last 3 Months Insurance [facility] CHOICE PLUS R [facility] Care Teams Aircraft Magneto Mechanic Relationship Specialty Start Date End Date Unknown, Notinfile PCP - General 03/16/25
--- OUTSIDE RECORDS SUMMARY | 2025-08-06 16:09 | XMS_ITS | Clinical Summary ---
Author Organization [facility] Address [address] [place] [address] Care Team Providers Care Bid Clerk Name Role Phone Solitario Mckeon MD Primary Care Provider [phone] Allergies No known active allergies Medications albuterol [...] series) 01/30/2012 INFLUENZA VACCINE (#1) 2025 Insurance [facility] [id number] Care Teams Bid Clerk Relationship Specialty Start Date End Date Solitario Mckeon MD PCP - General Family Practice 03/14/19
--- OUTSIDE RECORDS SUMMARY | 2025-08-06 16:09 | XMS_ITS | Encounter Summary ---
Author Organization [facility] Address [address] [place] [address] Phone Care Team Providers Care Cellophane Bag Machine Operator Name Role Phone Caridad Chase APRN, CNP Primary Care Provider Reason for Visit * Reason Comments Medication Refill Encounter Details Date Type Department Care Team (Late st Contact Info) Description 08/22/2023 Refill [facility] [address] [place] [phone] Segundo Tobar MD [address] [place], [place] [phone] Medication Refill Social History Tobacco Use Types [...] Coronavirus/COVID-19? No / Unsure 07/31/2023 8:30 AM CASTING WHEEL OPERATOR documented as of this encounter Plan of Treatment Not on file documented as of this encounter Visit Diagnoses Not on filedocumented in this encounter Care Teams Cellophane Bag Machine Operator Relationship Specialty Start Date End Date Caridad Chase APRN, LIO [address] [place] [address] PCP - General Certified Nurse Practitioner 05/01/23 documented as of this encounter
--- OUTSIDE RECORDS SUMMARY | 2025-08-06 16:09 | XMS_ITS | Encounter Summary ---
Author Organization [facility] Address [address] [place] [address] Phone Care Team Providers Care Prototype Sewer Name Role Phone Caridad Chase APRN, SORTER PRICER Primary Care Provider Encounter Details Date Type Department Care Team (Late st Contact Info) Description 09/04/2024 Telephone [facility] [address] [place] [address] Segundo Tobar MD [address] [place] [address] Social History Tobacco Use Types [...] office for rescheduling sent reminder letter out. T METAL WORKER APPRENTICE documented in this encounter Plan of Treatment Not on file documented as of this encounter Visit Diagnoses Not on filedocumented in this encounter Care Teams Prototype Sewer Relationship Specialty Start Date End Date Caridad Chase, TERRA COTTA MOLD MAKER, SORTER PRICER [address] [place] [address] PCP - General Certified Nurse Practitioner 05/01/23 documented as of this encounter
--- OUTSIDE RECORDS SUMMARY | 2025-08-06 16:09 | XMS_ITS | Encounter Summary ---
Author Organization [facility] Address [address] [place] [address] Phone Care Team Providers Care Warehouse Unloader Name Role Phone Caridad Chase APRN, EXHIBIT ELECTRICIAN Primary Care Provider Reason for Visit * Reason Comments Medication Refill Encounter Details Date Type Department Care Team (Late st Contact Info) Description 06/21/2023 Refill [facility] [address] [place] [phone] Segundo Tobar MD [address] [place], [place] [phone] Medication Refill Social History Tobacco Use Types [...] on filedocumented in this encounter Care Teams Warehouse Unloader Relationship Specialty Start Date End Date Caridad Chase, BAKE ROOM WORKER, EXHIBIT ELECTRICIAN [address] [place] [address] PCP - General Certified Nurse Practitioner 05/01/23 documented as of this encounter
--- OUTSIDE RECORDS SUMMARY | 2025-08-06 16:09 | XMS_ITS | Encounter Summary ---
Author Organization [facility] Address [address] [place] [address] Care Team Providers Care Screen Printing Inspector Name Role Phone Unknown, [place] Primary Care Provider Unavail able Encounter Details Date Type Department Care Team (Late st Contact Info) Description 07/22/2025 Results Follow-Up [facility] at [address] [address] Ryann Emmanuel NP [address] [place] [address] [address] [place] [address] Aerobic and anaerobic culture and gram stain Abscess Peritoneum Social History Tobacco Use Types Packs/Day Years Used Date Smoking Tobacco: Never Assessed Sex and Gender Information Value Date Recorded Sex Assigned at Not on file 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
[2025-08-06] MEDS: LACTATED RINGERS 1,000 ML 999 ML IV CONT (17:00)
[2025-08-06] MEDS: HYDROmorphone HCL INJ (*CRX) 1 MG/ML SYR 0.5 MG IV PUSH (17:01)
--- NOTE | 2025-08-06 17:03 | ED.GENADULT ---
HPI - General Adult General Chief complaint: Chest Pain Stated complaint: numbness everywhere Time Seen by Provider: 08/06/25 15:26 History of Present Illness HPI narrative: 40-year-old male prior history of pulmonary embolism and moyamoya presents to the emergency department for evaluation for chest pain and abdominal pain. Patient states he was having some issues with constipation and did attempt some magnesium sulfate with limited results. Patient states he has had increased tingling of bilateral upper lower extremities. Patient states he is having some chest pain and shortness of breath. Patient states the chest pain is worsened with deep inspiration. Related Data Home Medications ?Medication ?Instructions ?Recorded ?Confirmed ?Last Taken ?Type rivaroxaban 20 mg tablet (Xarelto) 20 mg PO QPM 06/11/21 09/13/22 09/13/22 History Allergies Allergy/AdvReac Type Severity Reaction Status Date / Time No Known Allergies Allergy Unknown Verified 08/06/25 13:04 Review of Systems Review of Systems: All systems reviewed & are unremarkable except as noted in HPI and below PMFSH Past Medical History Medical History Pulmonary embolism DVT (deep venous thrombosis) Nausea & vomiting CVA (cerebral vascular accident) Family History Family History Father Cerebrovascular accident Sibling Cerebrovascular accident Mother Diabetes mellitus Social History Social History Smoking packs per day: 0.5 Smoking cigarettes per day: 10.0 Years smoked: 15 Smoking pack-years: 7.50 Tobacco type: cigarettes Alcohol intake: current Drinks per week: 21 Alcohol use details: [facility] Substance use: never Substance use type: does not use Living arrangements: with family Gender identity (if verbalized by the patient): Male Sexual Orientation (if Verbalized by the Patient): Straight or Heterosexual Spiritual care concerns: No Exam Narrative: APPEARANCE: uncomfortable. HEAD: normocephalic, atraumatic. EYES: PERRLA/EOMI, conjunctivae clear. NOSE: Normal no drainage EARS:TMS clear with good light reflex. THROAT: Pharynx clear, no exudate. NECK: Supple. No adenopathy, no masses. RESPIRATORY: Airway patent, respirations nonlabored. Clear to auscultation bilaterally, no rales, rhonchi, wheezing. CARDIOVASCULAR: Regular rate and rhythm without murmurs rubs or gallops. ABDOMINAL: Diffuse abdominal tenderness to palpation MUSCULOSKELETAL: Moves all extremities. Strength/ROM intact, No edema, No calf tenderness. NEURO: Alert. Cranial nerves II through XII intact. Good gait. Good coordination SKIN: Warm, dry. Normal Color Course Vital Signs Vital signs: Vital Signs Temperature 98.3 F 08/06/25 13:06 Pulse Rate 113 H 08/06/25 13:06 Respiratory Rate 20 08/06/25 13:06 Blood Pressure 108/78 08/06/25 13:06 Pulse Oximetry 99 08/06/25 13:06 Temperature 97.9 F 08/06/25 19:26 Pulse Rate 105 H 08/06/25 19:26 Respiratory Rate 21 H 08/06/25 19:26 Blood Pressure 116/79 08/06/25 19:26 Pulse Oximetry 95 08/06/25 19:26 Oxygen Delivery Room Air 08/06/25 14:33 Medical Decision Making MDM Narrative Medical decision making narrative: 40-year-old male present to the emergency department for evaluation for chest tightness, constipation, abdominal pain. Patient is currently afebrile with no leukocytosis hemoglobin of 13.7. Patient had a INR of 1.1 and no acute abnormalities on his CMP. Patient had negative serial troponins. Patient does have history of moyamoya but patient had no acute vascular abnormalities seen on CTA chest abdomen pelvis, no evidence of pulmonary embolism. Chest x-ray shows no acute cardiopulmonary abnormality. Patient and family were updated on the results of the workup. He was offered admission for further evaluation and patient declined. Patient states he has had a recent MRI patient does follow-up with [facility]. Patient states that if he has any worsening symptoms he will have close follow-up as outpatient. Patient states he had stopped his Xarelto due to insurance issues but did solve this problem and will start his Xarelto again tomorrow. Differential Diagnosis Differential Diagnosis: pulmonary embolism, , constipation, ischemic bowel, chong chong Vital Signs Vital Signs: Vital Signs Temperature 98.3 F 08/06/25 13:06 Pulse Rate 113 H 08/06/25 13:06 Respiratory Rate 20 08/06/25 13:06 Blood Pressure 108/78 08/06/25 13:06 Pulse Oximetry 99 08/06/25 13:06 Temperature 97.9 F 08/06/25 19:26 Pulse Rate 105 H 08/06/25 19:26 Respiratory Rate 21 H 08/06/25 19:26 Blood Pressure 116/79 08/06/25 19:26 Pulse Oximetry 95 08/06/25 19:26 Oxygen Delivery Room Air 08/06/25 14:33 Lab Data Lab results reviewed: Yes I reviewed the patient's lab results. 08/06/25 14:29 08/06/25 14:29 Labs: Lab Results 08/06/25 08/06/25 Range/Units 14:29 17:27 WBC 9.2 (4.5-10.0) K/mm3 RBC 4.65 (4.6-6.20) M/mm3 Hgb 13.7 L (14.0-18.0) g/dL Hct 40.4 L (42.0-52.0) % MCV 86.9 (80-100) fl MCH 29.5 (26-34) pg MCHC 33.9 (32-36) g/dl RDW 13.2 (11.5-14.5) % Plt Count 142 L (150-375) k/mm3 MPV 9.6 (7.4-10.4) fl Immature Gran % (Auto) 0.1 (0-0.5) % Neut % (Auto) 28.2 L (45.5-73.1) % Lymph % (Auto) 55.6 H (18.3-44.2) % [place] % (Auto) 9.7 H (2.6-8.5) % Eos % (Auto) 6.0 H (0-4.4) % Baso % (Auto) 0.4 (0.2-1.2) % Lymph # (Auto) 5.09 H (0.9-3.2) K/mm3 [place] # (Auto) 0.9 H (0.1-0.6) K/mm3 Eos # (Auto) 0.6 H (0-0.3) K/mm3 Baso # (Auto) 0.0 (0.0-0.1) K/mm3 Abs Immat Gran (auto) 0.01 (0.00-0.031) K/mm3 Absolute Neuts (auto) 2.6 (1.3-6.7) K/mm3 Absolute Nucleated RBC 0.000 (0.0-0.012) K/mm3 Nucleated RBC % 0.0 (0.0-0.2) % PT 13.8 (11.1-14.7) Seconds INR 1.1 APTT 29.8 (22.3-36.8) Seconds Sodium 130 L (137-145) mmol/L Potassium 4.2 (3.4-5.0) mmol/L Chloride 100 (98-107) mmol/L Carbon Dioxide 23 (22-30) mmol/L Anion Gap 7 (4-12) mmol/L BUN 12 D (9-20) mg/dL Creatinine 1.45 H (0.7-1.3) mg/dL Estim Creat Clear Calc 73 ml/min Estimated GFR 54 L (59 - ) Glucose 109 (65-110) mg/dL Calcium 9.8 (8.4-10.2) mg/dL Magnesium 1.6 (1.6-2.3) mg/dL Total Bilirubin 0.6 (0.2-1.3) mg/dL AST 43 (17-59) U/L ALT 40 (6-50) U/L Alkaline Phosphatase 90 (38-126) U/L Troponin I < 0.012 < 0.012 (0.000-0.034) ng/mL Total Protein 8.6 H (6.3-8.2) g/dL Albumin 4.2 (3.5-5.1) g/dL Lipase 154 (23-300) U/L Imaging Data Radiologist's impression: Impressions Chest X-Ray 08/06/25 14:57 IMPRESSION: 1. Minimal scarring or atelectatic changes in the left lung base. Chest/Abdomen/Pelvis CTA 08/06/25 17:27 IMPRESSION: There is no pulmonary embolism, aortic dissection, pericardial fluid or thoracic aneurysm. No acute lung findings. ADDENDUM: 08/06/[address] abdomen pelvis with contrast INDICATION:Chest pain abdominal pain. COMPARISON: None. TECHNIQUE: Axial images of the abdomen and pelvis were obtained following infusion of 100 mL Isovue 3 7. Dose optimization technique was utilized. FINDINGS: The lung bases are clear. Fatty infiltration of the liver is noted. No intrahepatic mass or ductal dilatation is evident. The gallbladder is unremarkable. The pancreas and spleen are normal in appearance. The adrenal glands are symmetric in size. The kidneys demonstrate symmetric uptake and excretion of contrast. No cystic mass is evident. There is no solid mass. There is no hydronephrosis. Evaluation of the stomach and bowel loops are limited due to lack of oral contrast. The appendix is normal in appearance. The bladder and rectum are normal. No free intraperitoneal fluid or air is evident. There is no significant retroperitoneal lymphadenopathy. The aorta, visceral vessels and renal arteries demonstrate normal caliber and patency. The lower thoracic and lumbar vertebrae are in normal alignment. IMPRESSION: No acute abnormality is noted in the abdomen and pelvis. Discharge Plan Discharge Clinical Impression: Abdominal pain, Chest tightness Patient Disposition: Home Condition: Stable Instructions: Antibiotic Form Additional Instructions: have close follow-up with your primary care physician. If you have any worsening symptoms please call or return to the emergency department. Patient Language: Gibraltarian Prescriptions: No Action ondansetron 4 mg tablet,disintegrating 4 mg PO Q6H PRN (Reason: nausea and vomiting) Qty: 20 0RF sulfamethoxazole-trimethoprim [Bactrim DS] 800-160 mg tablet 1 tablet PO Q12H Qty: 14 0RF ondansetron 4 mg tablet,disintegrating 4 mg PO Q8H PRN (Reason: nausea and vomiting) Qty: 10 0RF Xarelto 20 mg tablet 20 mg PO QPM famotidine [Pepcid AC] 20 mg tablet 20 mg PO DAILY Qty: 14 0RF Follow-up/Referrals: UNKNOWN,DOCTOR [Primary Care Provider]
[2025-08-06 17:52] LABS: Troponin I < 0.012 ng/mL (0.000-0.034)
[2025-08-06 18:11] LABS: Magnesium 1.6 mg/dL (1.6-2.3)
== END 2025-08-06 19:28 | disposition home or self-care (01) ==
PROVIDERS: Emergency Provider Emergency Medicine
DX: R07.89 Other chest pain (principal); R10.9 Unspecified abdominal pain; Z86.718 Personal history of other venous thrombosis and embolism; Z86.711 Personal history of pulmonary embolism; Z86.73 Personal history of transient ischemic attack (TIA), and cerebral infarction without residual deficits; F17.210 Nicotine dependence, cigarettes, uncomplicated
CPT/HCPCS: 36415; 71046; 71275; 74177; 80053; 83690; 83735; 84484; 85025; 85610; 85730; 93005; 96361; 96374; 99284; J1171; J7120; Q9967